=== PATIENT | female | born 1960 | race Caucasian/White ===

== ENCOUNTER → 2017-07-22 | Outpatient (CLI) | payer BC ==
--- NOTE | 2017-07-25 10:53 | MM ---
Reason for exam: screening (asymptomatic). Last mammogram was performed 4 years and 1 month ago. History: Patient is postmenopausal. Physical Findings: A clinical breast exam by your physician is recommended on an annual basis and results should be correlated with mammographic findings. MG 3D Screening Mammo W/Cad Bilateral CC and MLO view(s) were taken. Prior study comparison: July 05, 2013, CAD bilateral diagnostic mammogram. August 12, 2011, bilateral digital screening mammo w/CAD. The breast tissue is heterogeneously dense. This may lower the sensitivity of mammography. No suspicious abnormality. No significant changes when compared with prior studies. ASSESSMENT: Negative, BI-RAD 1 RECOMMENDATION: Routine screening mammogram of both breasts in 1 year.
== END | disposition home or self-care (01) ==
LOC: RADMAMWWP 13:23
PROVIDERS: ATTEND Obstetrics & Gynecology
DX: Z12.31 Encounter for screening mammogram for malignant neoplasm of breast (principal)
CPT/HCPCS: 77063; 77067

== ENCOUNTER 2017-07-27 14:34 | Inpatient (IN) | payer BC ==
[2017-07-27 15:44] LABS: Basophils % (A) 0 %; Eosinophils # (A) 0.1 k/uL (0-0.7); Eosinophils % (A) 1 %; HCT 34.7 % (34.0-46.0); HGB 12.1 gm/dL (11.4-16.0); Lymphocytes # (A) 1.2 k/uL (1.0-4.8); Lymphocytes % (A) 19 %; MCH 31.3 pg (25.0-35.0); MCHC 34.8 g/dL (31.0-37.0); Mean Platelet Volume 8.2; Monocytes # (A) 0.3 k/uL (0-1.0); Monocytes % (A) 5 %; Neutrophils # (A) 4.5 k/uL (1.3-7.7); Neutrophils % (A) 72 %; RBC 3.86 m/uL (3.80-5.40); RDW 12.8 % (11.5-15.5); WBC 6.3 k/uL (3.8-10.6)
[2017-07-27 15:52] LABS: Anion Gap 12 mmol/L; Blood Urea Nitrogen 16 mg/dL (7-17); Calcium 9.6 mg/dL (8.4-10.2); Carbon Dioxide 27 mmol/L (22-30); Chloride 108 mmol/L (98-107); Glucose 73 mg/dL (74-99); Potassium 3.8 mmol/L (3.5-5.1); Sodium 147 mmol/L (137-145)
--- NOTE | 2017-07-27 15:53 | XR ---
EXAMINATION TYPE: XR chest 2V DATE OF EXAM: 07/27/2017 COMPARISON: NONE INDICATION: Low platelets, bruising TECHNIQUE: Frontal and lateral views of the chest are obtained. FINDINGS: The heart size is normal. The pulmonary vasculature is normal. The lungs are clear. No effusions are evident. No pulmonary contusions are identified. Bimalleolar a ppears normal. IMPRESSION: 1. No acute pulmonary process.
--- NOTE | 2017-07-27 15:57 | ED ---
Recheck HPI - General Chief Complaint: Recheck/Abnormal Lab/Rx Stated Complaint: sent by for low platelet count Time Seen by Provider: 07/27/17 14:48 Source: patient Mode of arrival: ambulatory Limitations: no limitations - History of Present Illness Initial Comments: 57-year-old female with past medical history of hypertension and hyperlipidemia presenting for evaluation of petechia easy bruising. She states that she presented to an urgent care for lesions in the mouth as well as petechia across her body. They found her to be from [facility] center to the ED for further treatment and evaluation. She states recently the only change in her medical status is taking Aleve for generalized body aches however she denies any previous issues when previous he taking Aleve. There are no recent viral illnesses and she denies previously having similar symptoms. She has a past surgical history significant for hysterectomy and bunion repair as which are recent and had no bleeding competitions. There are no bleeding disorders in her family, either older family or in her children. She states that she does intermittently bruises easily she does not ever get these petechia. There is also associated mild epistaxis from the right naris. - Related Data Home Medications Medication Instructions Recorded Confirmed Atorvastatin [Lipitor] 40 mg PO HS 08/17/15 07/27/17 Lisinopril [Lisinopril] 10 mg PO DAILY 08/17/15 07/27/17 Allergies Allergy/AdvReac Type Severity Reaction Status Date / Time No Known Allergies Allergy Verified 07/27/17 14:47 Review of Systems ROS Statement: Those systems with pertinent positive or pertinent negative responses have been documented in the HPI. ROS Other: All systems not noted in ROS Statement are negative. Constitutional: Denies: fever, chills, night sweats Eyes: Denies: eye discharge, vision change ENT: Reports: epistaxis. Denies: ear pain, throat pain, congestion Respiratory: Denies: cough, dyspnea, wheezes, hemoptysis Cardiovascular: Denies: chest pain, palpitations, dyspnea on exertion, syncope Endocrine: Denies: fatigue, polydipsia, polyuria Gastrointestinal: Denies: abdominal pain, nausea, vomiting, diarrhea, constipation, hematemesis, melena, hematochezia Genitourinary: Denies: urgency, dysuria, hematuria, abnormal menses Skin: Reports: lesions, other (Bruising inside the mouth along the masticationAnd diffuse petechia across her entire body. There is also intermittent bruises across her arms.) Neurological: Denies: headache, weakness Psychiatric: Denies: anxiety, depression Hematological/Lymphatic: Reports: easy bruising (Mild). Denies: easy bleeding Past Medical History Past Medical History: Hyperlipidemia, Hypertension History of Any Multi-Drug Resistant Organisms: None Reported Past Surgical History: No Surgical Hx Reported Past Psychological History: No Psychological Hx Reported Smoking Status: Never smoker Past Alcohol Use History: None Reported Past Drug Use History: None Reported General Exam Limitations: no limitations General appearance: alert, in no apparent distress Head exam: Present: atraumatic, normocephalic Eye exam: Present: normal appearance, PERRL, EOMI. Absent: scleral icterus, conjunctival injection ENT exam: Present: mucous membranes dry, other (Multiple bruises to the bucca mucosa as well as to her lower lip) Neck exam: Present: normal inspection, tenderness Respiratory exam: Present: normal lung sounds bilaterally. Absent: respiratory distress, wheezes, rales, rhonchi, stridor Cardiovascular Exam: Present: regular rate, normal rhythm GI/Abdominal exam: Present: soft. Absent: distended, tenderness, guarding, rebound, rigid Rectal exam: Present: deferred Extremities exam: Present: normal inspection, full ROM Back exam: Present: normal inspection, full ROM Neurological exam: Present: alert, oriented X3 Psychiatric exam: Present: normal affect, normal mood, depressed Skin exam: Present: warm, dry, intact, petechiae (Diffuse), other (Bruising to the upper extremities worse on the right compared to the left) Course Vital Signs 07/27/17 07/27/17 07/27/17 14:40 17:15 18:06 Temperature 98.5 F 97.4 F L 98.7 F Pulse Rate 85 71 Pulse Rate [ 61 Pulse Oximetery ] Respiratory 18 18 16 Rate Blood Pressure 165/80 173/95 Blood Pressure 163/90 [Left Arm] O2 Sat by Pulse 98 100 98 Oximetry Medical Decision Making - Medical Decision Making 57 yo female with pmh of HTN and HLD presenting for evaluation of petechia and mouth sores started over the last couple days. Seen at urgent care, found to be thrombocytopenic, and sent to ED. On physical examination she does have diffuse petechia across all extremities and her trunk. The mouth lesions are bruising along the mastication line. Patient also has a mild epistaxis that is currently well controlled. Concern for ITP vs TTP among other bleeding disorders. Will obtain lab work and evaluate further. Discussed with Dr. Sweeney who accepted the admission with request for consult with Dr. Woodruff. He further requested to delay transfusing platelets until discussing with Dr. Woodruff (hem/onc). Admission order placed and bed request submitted. Discussed with Dr. Simmons (hem/onc) who requested the patient be started on 1 g Solu-Medrol daily and do have a peripheral smear ordered to look for schistocytes and platelet clumping as well as to order coagulation studies. She did not request for the patient to be transfused and this will continue to be held. - Lab Data Result diagrams: 07/27/17 15:34 07/27/17 15:34 Lab Results 07/27/17 07/27/17 07/27/17 Range/Units 15:34 15:34 15:42 WBC 6.3 (3.8-10.6) k/uL RBC 3.86 (3.80-5.40) m/uL Hgb 12.1 (11.4-16.0) gm/dL Hct 34.7 (34.0-46.0) % MCV 90.0 (80.0-100.0) fL MCH 31.3 (25.0-35.0) pg MCHC 34.8 (31.0-37.0) g/dL RDW 12.8 (11.5-15.5) % Plt Count 6 L* (150-450) k/uL Neutrophils % 72 % Lymphocytes % 19 % Monocytes % 5 % Eosinophils % 1 % Basophils % 0 % Neutrophils # 4.5 (1.3-7.7) k/uL Lymphocytes # 1.2 (1.0-4.8) k/uL Monocytes # 0.3 (0-1.0) k/uL Eosinophils # 0.1 (0-0.7) k/uL Basophils # 0.0 (0-0.2) k/uL Sodium 147 H (137-145) mmol/L Potassium 3.8 (3.5-5.1) mmol/L Chloride 108 H (98-107) mmol/L Carbon Dioxide 27 (22-30) mmol/L Anion Gap 12 mmol/L BUN 16 (7-17) mg/dL Creatinine 0.50 L (0.52-1.04) mg/dL Est GFR (CKD-EPI)AfAm >90 (>60 ml/min/1.73 sqM) Est GFR (CKD-EPI)NonAf >90 (>60 ml/min/1.73 sqM) Glucose 73 L (74-99) mg/dL Calcium 9.6 (8.4-10.2) mg/dL Urine Color Urine Appearance (Clear) Urine pH (5.0-8.0) Ur Specific [place] (1.001-1.035) Urine Protein (Negative) Urine Glucose (UA) (Negative) Urine Ketones (Negative) Urine Blood (Negative) Urine Nitrite (Negative) Urine Bilirubin (Negative) Urine Urobilinogen (<2.0) mg/dL Ur Leukocyte Esterase (Negative) Urine RBC (0-5) /hpf Urine WBC (0-5) /hpf Ur Squamous Epith Cells (0-4) /hpf Amorphous Sediment (None) /hpf Blood Type A Positive Blood Type Recheck No Antibody Screen NEGATIVE Spec Expiration Date 07/30/2017 - 234107/27/17 Range/Units 15:42 WBC (3.8-10.6) k/uL RBC (3.80-5.40) m/uL Hgb (11.4-16.0) gm/dL Hct (34.0-46.0) % MCV (80.0-100.0) fL MCH (25.0-35.0) pg MCHC (31.0-37.0) g/dL RDW (11.5-15.5) % Plt Count (150-450) k/uL Neutrophils % % Lymphocytes % % Monocytes % % Eosinophils % % Basophils % % Neutrophils # (1.3-7.7) k/uL Lymphocytes # (1.0-4.8) k/uL Monocytes # (0-1.0) k/uL Eosinophils # (0-0.7) k/uL Basophils # (0-0.2) k/uL Sodium (137-145) mmol/L Potassium (3.5-5.1) mmol/L Chloride (98-107) mmol/L Carbon Dioxide (22-30) mmol/L Anion Gap mmol/L BUN (7-17) mg/dL Creatinine (0.52-1.04) mg/dL Est GFR (CKD-EPI)AfAm (>60 ml/min/1.73 sqM) Est GFR (CKD-EPI)NonAf (>60 ml/min/1.73 sqM) Glucose (74-99) mg/dL Calcium (8.4-10.2) mg/dL Urine Color Light Yellow Urine Appearance Cloudy H (Clear) Urine pH 7.5 (5.0-8.0) Ur Specific [place] 1.013 (1.001-1.035) Urine Protein Negative (Negative) Urine Glucose (UA) Negative (Negative) Urine Ketones Negative (Negative) Urine Blood Moderate H (Negative) Urine Nitrite Negative (Negative) Urine Bilirubin Negative (Negative) Urine Urobilinogen <2.0 (<2.0) mg/dL Ur Leukocyte Esterase Trace H (Negative) Urine RBC 69 H (0-5) /hpf Urine WBC 6 H (0-5) /hpf Ur Squamous Epith Cells <1 (0-4) /hpf Amorphous Sediment Occasional H (None) /hpf Blood Type Blood Type Recheck Antibody Screen Spec Expiration Date Disposition Clinical Impression: Thrombocytopenia, Petechial rash, Hematuria, Epistaxis Disposition: ADMITTED IP TO THIS [facility] Referrals: Roger Mercado DO [Primary Care Provider] - 1-2 days Decision to Admit Reason: Admit from EC Decision Date: 07/27/17 Decision Time: 16:59
[2017-07-27 16:06] LABS: Amorphous Sediment,Urine Occasional /hpf; Appearance,Urine Cloudy (Clear); Bilirubin,Urine Negative (Negative); Blood,Urine Moderate (Negative); Color,Urine Light Yellow; Glucose,Urine (UA) Negative (Negative); Ketones,Urine Negative (Negative); Leukocyte Esterase,Urine Trace (Negative); Nitrite,Urine Negative (Negative); PH, Urine 7.5 (5.0-8.0); Protein,Urine Negative (Negative); RBC,Urine 69 /hpf (0-5); Specific Gravity,Urine 1.013 (1.001-1.035); Squamous Epithelial Cell,Urine <1 /hpf (0-4); Urobilinogen,Urine <2.0 mg/dL (<2.0); WBC,Urine 6 /hpf (0-5)
[2017-07-27 16:14] LABS: Platelet Count 6 k/uL (150-450)
[2017-07-27] MEDS ORDERED: OXYMETAZOLINE 0.05% NASL SPRAY 1 SPRAY BOTTLE NASAL STA (17:00)
[2017-07-27] MEDS ORDERED: ACETAMINOPHEN TAB 325 MG TAB PO PRN (17:00)
[2017-07-27] MEDS ORDERED: ONDANSETRON 4 MG/2 ML VIAL IVP PRN (17:00)
[2017-07-27] MEDS ORDERED: NALOXONE 0.4 MG/ML 1 ML VIAL IV PRN (17:00)
[2017-07-27] MEDS ORDERED: methylPREDNISolone SOD SUCCI 125 MG/2 ML VIAL IV SCH (17:15)
[2017-07-27 19:05] LABS: Partial Thromboplastin Time 21.6 sec (22.0-30.0)
--- NOTE | 2017-07-27 23:44 | P.HPIM ---
History of Present Illness H&P Date: 07/27/17 Chief Complaint: Rash Patient is a 57-year-old female with a known history of hypertension hyperlipidemia came to ER with complaints of nosebleed and mouth sores. Patient also noticed petechial rash all over the body and bruising which she notices in the morning today. She presented to urgent care facility and patient had blood workup done which showed thrombocytopenia and was referred to ER. Patient otherwise denied any recent illnesses. Patient had influenza about a year back. She states recently the only change in her medical status is taking Aleve for generalized body aches however she denies any previous issues when previous he taking Aleve. She has a past surgical history significant for hysterectomy and bunion repair as which are recent and had no bleeding competitions. There are no bleeding disorders in her family, either older family or in her children. She states that she does intermittently bruises easily she does not ever get these petechia. No fever no chills. No nausea vomiting or abdominal pain. No diarrhea. No hematemesis or melena. No altered mentation.. Creatinine 0.5 Chest x-ray showed no acute cardio process Platelet count 6000 Review of Systems Constitutional: Patient denies any fever or chills . No generalized weakness or weight loss. Abdomen: Patient denied nausea vomiting and diarrhea and abdominal pain. Cardiovascular: Patient denies any chest pain or short of breath no palpitations. Respiratory: patient denied any cough is from production. No shortness of breath Neurologic: Patient denied any numbness or tingling headache. Musculoskeletal: Patient denies any complaints of joint swelling or deformity. Skin: Petechial rash and bruising Psychiatric: Negative Endocrine: No heat or cold intolerance. No recent weight gain. Genitourinary: No dysuria or hematuria. All other 14 point ROS negative except the above Past Medical History Past Medical History: Hyperlipidemia, Hypertension Additional Past Medical History / Comment(s): murmur, arthitis in feet, "blisters in mouth", bruising rt arm (slipped bumped arm but did'nt fall ). History of Any Multi-Drug Resistant Organisms: None Reported Past Surgical History: No Surgical Hx Reported Additional Past Surgical History / Comment(s): partial hysterectomy, nehal bunionectomy Past Anesthesia/Blood Transfusion Reactions: No Reported Reaction Past Psychological History: No Psychological Hx Reported Smoking Status: Never smoker Past Alcohol Use History: None Reported Past Drug Use History: None Reported - Past Family History Mother Additional Family Medical History / Comment(s): pacemaker Father Family Medical History: Coronary Artery Disease (CAD) Additional Family Medical History / Comment(s): age 42- cardiac disease Medications and Allergies Home Medications Medication Instructions Recorded Confirmed Type Atorvastatin [Lipitor] 40 mg PO HS 08/17/15 07/27/17 History Lisinopril [Lisinopril] 10 mg PO DAILY 08/17/15 07/27/17 History Allergies Allergy/AdvReac Type Severity Reaction Status Date / Time No Known Allergies Allergy Verified 07/27/17 14:47 Physical Exam Vitals: Vital Signs Temp Pulse Pulse Resp BP BP Pulse Ox 07/27/17 18:06 98.7 F 61 16 163/90 98 07/27/17 17:15 97.4 F L 71 18 173/95 100 07/27/17 14:40 98.5 F 85 18 165/80 98 Intake and Output 07/27/17 07/27/17 07/27/17 06:59 14:59 22:59 Other: Weight 61.235 kg PHYSICAL EXAMINATION: Patient is lying in the bed comfortably, no acute distress, awake alert and oriented.. HEENT: Normocephalic. Neck is supple. Pupils reactive. Nostrils clear. Oral cavity is moist. Ears reveal no drainage. Neck reveals no JVD, carotid bruits, or thyromegaly. CHEST EXAMINATION: Trachea is central. Symmetrical expansion. Lung suaoz clear to auscultation and percussion. CARDIAC: Normal S1, S2 with no gallops. No murmurs ABDOMEN: Soft. Bowel sounds normal. No organomegaly. No abdominal bruits. Extremities: reveal no edema. No clubbing or cyanosis Neurologically awake, alert, oriented x3 with well-coordinated movements. No focal deficits noted Skin: Patient does have petechial rash mainly on the hands and bruising at the left elbow 2 x 2 cm Psychiatric: Coperative. Nonsuicidal Musculoskeletal: No joint swelling or deformity. Normal range of motion. Results CBC & Chem 7: 07/27/17 15:34 07/27/17 15:34 Labs: Abnormal Lab Results - Last 24 Hours (Table) 07/27/17 07/27/17 07/27/17 Range/Units 15:30 15:34 15:34 Plt Count 6 L* (150-450) k/uL APTT 21.6 L (22.0-30.0) sec Sodium 147 H (137-145) mmol/L Chloride 108 H (98-107) mmol/L Creatinine 0.50 L (0.52-1.04) mg/dL Glucose 73 L (74-99) mg/dL Urine Appearance (Clear) Urine Blood (Negative) Ur Leukocyte Esterase (Negative) Urine RBC (0-5) /hpf Urine WBC (0-5) /hpf Amorphous Sediment (None) /hpf 07/27/17 Range/Units 15:42 Plt Count (150-450) k/uL APTT (22.0-30.0) sec Sodium (137-145) mmol/L Chloride (98-107) mmol/L Creatinine (0.52-1.04) mg/dL Glucose (74-99) mg/dL Urine Appearance Cloudy H (Clear) Urine Blood Moderate H (Negative) Ur Leukocyte Esterase Trace H (Negative) Urine RBC 69 H (0-5) /hpf Urine WBC 6 H (0-5) /hpf Amorphous Sediment Occasional H (None) /hpf Assessment and Plan Assessment: Acute thrombocytopenia. Possible ITP Petechial rash and bruising Hypertension Hyperlipidemia Mild hypernatremia Plan: Patient was started on supplemental 1 g daily. We'll check peripheral smear for any schistocytes and platelet clumping. Oncology/hematology will be consulted and follow up closely. Further recommendations based on the clinical course. Time with Patient: Greater than 30
[2017-07-28 07:20] LABS: Anion Gap 10 mmol/L; Blood Urea Nitrogen 16 mg/dL (7-17); Calcium 9.8 mg/dL (8.4-10.2); Carbon Dioxide 26 mmol/L (22-30); Chloride 107 mmol/L (98-107); Glucose 139 mg/dL (74-99); Potassium 3.9 mmol/L (3.5-5.1); Sodium 143 mmol/L (137-145)
[2017-07-28 07:24] LABS: Basophils % (A) 0 %; Eosinophils % (A) 0 %; HGB 12.6 gm/dL (11.4-16.0); Lymphocytes # (A) 0.5 k/uL (1.0-4.8); Lymphocytes % (A) 9 %; MCH 31.4 pg (25.0-35.0); MCHC 34.8 g/dL (31.0-37.0); MCV 90.3 fL (80.0-100.0); Mean Platelet Volume 5.7; Monocytes # (A) 0.1 k/uL (0-1.0); Monocytes % (A) 1 %; Neutrophils # (A) 5.2 k/uL (1.3-7.7); Neutrophils % (A) 90 %; RBC 3.99 m/uL (3.80-5.40); RDW 12.9 % (11.5-15.5); WBC 5.8 k/uL (3.8-10.6)
[2017-07-28 07:30] LABS: Platelet Count 4 k/uL (150-450)
[2017-07-28] MEDS: LISINOPRIL 10 MG TAB PO SCH (09:14)
--- NOTE | 2017-07-28 13:54 | P.CONS ---
History of Present Illness - Reason for Consult Consult date: 07/28/17 Thrombocytopenia Requesting physician: Corby Sweeney - Chief Complaint Petechia - History of Present Illness Ms. Mcknight is a very pleasant 57 yo female with no PMH other than well controlled HTN and HLP, who presented to her PCP for increasing petechia and lesions on her tongue. CBC showed severe thrombocytopenia. She was told to go to ED, where CBC showed normal WBC and hemoglobin, although plt was 6. Coag's normal. LFT's normal. She was admitted for further management and were called for further management. Given a dose of Solumedrol 1gm per my request in the ED. She otherwise has been feeling well. Very active. Did slip in the shower a couple days ago and today noticed a large hematoma on her left hip. Otherwise, her left arm was bruised. Also couple days ago had black blister on her tongue after biting her tongue. She did have a physical a few months ago which showed plt 134, otherwise normal and no other CBC's in the system. No fevers, night sweats, weight loss, fatigue, GI/ symptoms, or other complaints. No bleeding. Postmenopausal. No smoking, alcohol, or drugs. Lives at home with her . No known family history of blood disorders or cancers. Review of Systems All systems: negative Constitutional: Reports as per HPI Past Medical History Past Medical History: Hyperlipidemia, Hypertension Additional Past Medical History / Comment(s): murmur, arthitis in feet, "blisters in mouth", bruising rt arm (slipped bumped arm but did'nt fall ). History of Any Multi-Drug Resistant Organisms: None Reported Past Surgical History: No Surgical Hx Reported Additional Past Surgical History / Comment(s): partial hysterectomy, nehal bunionectomy Past Anesthesia/Blood Transfusion Reactions: No Reported Reaction Past Psychological History: No Psychological Hx Reported Smoking Status: Never smoker Past Alcohol Use History: None Reported Past Drug Use History: None Reported - Past Family History Mother Additional Family Medical History / Comment(s): pacemaker Father Family Medical History: Coronary Artery Disease (CAD) Additional Family Medical History / Comment(s): age 42- cardiac disease Medications and Allergies Home Medications Medication Instructions Recorded Confirmed Type Atorvastatin [Lipitor] 40 mg PO HS 08/17/15 07/27/17 History Lisinopril [Lisinopril] 10 mg PO DAILY 08/17/15 07/27/17 History Allergies Allergy/AdvReac Type Severity Reaction Status Date / Time No Known Allergies Allergy Verified 07/27/17 14:47 Physical Exam Vitals: Vital Signs Temp Pulse Pulse Pulse Resp BP BP 07/28/17 08:22 17 07/28/17 07:32 97.8 F 63 17 124/84 07/27/17 23:00 98.1 F 70 16 141/79 07/27/17 22:34 16 07/27/17 18:06 98.7 F 61 16 163/90 07/27/17 17:15 97.4 F L 71 18 173/95 07/27/17 14:40 98.5 F 85 18 165/80 Pulse Ox 07/28/17 08:22 07/28/17 07:32 96 07/27/17 23:00 96 07/27/17 22:34 07/27/17 18:06 98 07/27/17 17:15 100 07/27/17 14:40 98 Intake and Output 07/27/17 07/28/17 07/28/17 22:59 06:59 14:59 Intake Total 550 Balance 550 Intake: Intake, IV Titration 100 Amount methylPREDNISolone SOD 100 SUCC 1,000 mg In Sodium Chloride 0.9% 100 ml @ 100 mls/hr IVPB Q24H [facility] Rx#:[id number] Oral 450 Other: # Voids 2 1 Weight 61.235 kg Constitutional: No acute distress. HEENT: EOMI. No scleral icterus or pallor. Mucosa moist without lesions. Neck: Neck supple. Lymph: No cervical, axillary or inguinal LAD. Lungs: CTA-B without wheezing or rhonchi. Heart: RRR without murmurs. No LE edema. Abdomen: Soft, nontender, nondistended, with positive bowel sounds. MSK: 4/4 strength in all 4 extremities. Neuro: Alert and oriented x 3. ~No obvious gross neurologic deficits. Skin: No jaundice. Diffuse petechia on arms, legs, and torso. Couple scattered purpura as well. Petechia and purpura on tongue. Large hematoma, nodular, on left hip. Psych: Appropriate affect Results CBC & Chem 7: 07/28/17 06:50 07/28/17 06:50 Labs: Abnormal Lab Results - Last 24 Hours (Table) 07/27/17 07/27/17 07/27/17 Range/Units 15:30 15:34 15:34 Plt Count 6 L* (150-450) k/uL Lymphocytes # (1.0-4.8) k/uL APTT 21.6 L (22.0-30.0) sec Sodium 147 H (137-145) mmol/L Chloride 108 H (98-107) mmol/L Creatinine 0.50 L (0.52-1.04) mg/dL Glucose 73 L (74-99) mg/dL Urine Appearance (Clear) Urine Blood (Negative) Ur Leukocyte Esterase (Negative) Urine RBC (0-5) /hpf Urine WBC (0-5) /hpf Amorphous Sediment (None) /hpf 07/27/17 07/28/17 07/28/17 Range/Units 15:42 06:50 06:50 Plt Count 4 L* (150-450) k/uL Lymphocytes # 0.5 L (1.0-4.8) k/uL APTT (22.0-30.0) sec Sodium (137-145) mmol/L Chloride (98-107) mmol/L Creatinine 0.50 L (0.52-1.04) mg/dL Glucose 139 H (74-99) mg/dL Urine Appearance Cloudy H (Clear) Urine Blood Moderate H (Negative) Ur Leukocyte Esterase Trace H (Negative) Urine RBC 69 H (0-5) /hpf Urine WBC 6 H (0-5) /hpf Amorphous Sediment Occasional H (None) /hpf Assessment and Plan Assessment: 1. 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 Left hip hematoma due to trauma couple days ago Plan: Ms. Mcknight is a very pleasant 57 yo female with history of HTN and HLP who is here for thrombocytopenia after work up for petechia. She has noticed increased bruising recently however no bleeding. CBC from 01/2017 with mild thrombocytopenia of 130, otherwise normal. CMP and coag's normal. She otherwise feels great. Started on solumedrol in ED. I feel her case is likely due to ITP. Will obtain work up to ensure no other contributing etiology, and to help identify etiology of ITP. I did reimbursement counselor her on my suspicion. She will need to be on steroids, Solumedrol 1gm daily for at least 3 days, and monitored with daily CBC. Would avoid platelet transfusions if no active bleed as she likely will not benefit from this. Advised to be extra cautious about falls/trauma for now until her platelets are somewhat improved. Will diana her hematoma as well and monitor her bruising to ensure no ongoing bleeding. Discussed with pt and her at bedside. Counseled on ITP diagnosis and management. They were agreeable to the plan. All questions were answered.
[2017-07-28] MEDS: PANTOPRAZOLE 40 MG TABLET PO SCH (17:07)
[2017-07-28] MEDS: ATORVASTATIN 40 MG TAB PO SCH (20:49)
--- NOTE | 2017-07-29 01:01 | P.PN ---
Subjective Progress Note Date: 07/28/17 Principal diagnosis: ITP Patient is a 57-year-old female with a known history of hypertension hyperlipidemia came to ER with complaints of nosebleed and mouth sores. Patient also noticed petechial rash all over the body and bruising which she notices in the morning today. She presented to urgent care facility and patient had blood workup done which showed thrombocytopenia and was referred to ER. Patient otherwise denied any recent illnesses. Patient had influenza about a year back. She states recently the only change in her medical status is taking Aleve for generalized body aches however she denies any previous issues when previous he taking Aleve. She has a past surgical history significant for hysterectomy and bunion repair as which are recent and had no bleeding competitions. There are no bleeding disorders in her family, either older family or in her children. She states that she does intermittently bruises easily she does not ever get these petechia. No fever no chills. No nausea vomiting or abdominal pain. No diarrhea. No hematemesis or melena. No altered mentation.. Creatinine 0.5 Chest x-ray showed no acute cardio process Platelet count 6000 07/28/2017 Patient denied any complaints of chest pain or shortness of breath. Patient was seen by oncology/hematology. Being continued on IV steroids. No signs of active bleeding noted. Patient does have hematoma on the left hip which is marked. Platelet count is 4000 today. Patient was given walker and fall precautions with side of the bed elevation. No fever no chills. B12, folate, iron profile, HIV, hepatitis and TSH was ordered All other review of systems negative for about Active Medications Acetaminophen (Tylenol Tab) 650 mg PO Q6HR PRN PRN Reason: Mild Pain or Fever > 100.5 Atorvastatin Calcium (Lipitor) 40 mg PO HS [facility] Last Admin: 07/28/17 20:49 Dose: 40 mg Methylprednisolone Sodium Succinate 1,000 mg/ Sodium Chloride 100 mls @ 100 mls /hr IVPB Q24H [facility] Last Admin: 07/28/17 17:07 Dose: 100 mls/hr Lisinopril (Zestril) 10 mg PO DAILY [facility] Last Admin: 07/28/17 09:14 Dose: 10 mg Naloxone HCl (Narcan) 0.2 mg IV Q2M PRN PRN Reason: Opioid Reversal Ondansetron HCl (Zofran) 4 mg IVP Q8HR PRN PRN Reason: Nausea And Vomiting Pantoprazole Sodium (Protonix) 40 mg PO AC-BRKFST [facility] Last Admin: 07/28/17 17:07 Dose: 40 mg Objective - Vital Signs Vital signs: Vital Signs Temp 98.4 F 07/28/17 14:51 Pulse 74 07/28/17 14:51 Resp 18 07/28/17 14:51 BP 136/79 07/28/17 14:51 Pulse Ox 98 07/28/17 14:51 Intake & Output 07/28/17 07/28/17 07/29/17 06:59 18:59 06:59 Intake Total 550 Balance 550 Weight 61.235 kg Intake: Intake, IV Titration 100 Amount methylPREDNISolone SOD 100 SUCC 1,000 mg In Sodium Chloride 0.9% 100 ml @ 100 mls/hr IVPB Q24H [facility] Rx#:[id number] Oral 450 Other: # Voids 1 3 - Exam PHYSICAL EXAMINATION: Patient is lying in the bed comfortably, no acute distress, awake alert and oriented.. HEENT: Normocephalic. Neck is supple. Pupils reactive. Nostrils clear. Oral cavity is moist. Ears reveal no drainage. Neck reveals no JVD, carotid bruits, or thyromegaly. CHEST EXAMINATION: Trachea is central. Symmetrical expansion. Lung suazo clear to auscultation and percussion. CARDIAC: Normal S1, S2 with no gallops. No murmurs ABDOMEN: Soft. Bowel sounds normal. No organomegaly. No abdominal bruits. Extremities: reveal no edema. No clubbing or cyanosis. Hematoma on the left hip Neurologically awake, alert, oriented x3 with well-coordinated movements. No focal deficits noted Skin: Patient does have petechial rash mainly on the hands and bruising at the left elbow 2 x 2 cm Psychiatric: Coperative. Nonsuicidal Musculoskeletal: No joint swelling or deformity. Normal range of motion. - Labs CBC & Chem 7: 07/28/17 06:50 07/28/17 06:50 Labs: Abnormal Lab Results - Last 24 Hours (Table) 07/28/17 07/28/17 Range/Units 06:50 06:50 Plt Count 4 L* (150-450) k/uL Lymphocytes # 0.5 L (1.0-4.8) k/uL Creatinine 0.50 L (0.52-1.04) mg/dL Glucose 139 H (74-99) mg/dL Assessment and Plan Assessment: Acute thrombocytopenia. Possible ITP Petechial rash and bruising Hypertension Hyperlipidemia Mild hypernatremia Left hip hematoma from recent fall Plan: Patient was started on Solu-Medrol 1 g daily. Ordered peripheral smear for any schistocytes and platelet clumping. Oncology/hematology will be consulted and follow up closely. Continue workup for etiology. Further recommendations based on the clinical course. Time with Patient: Greater than 30
[2017-07-29] MEDS: PANTOPRAZOLE 40 MG TABLET PO SCH (07:50)
[2017-07-29 08:23] LABS: Albumin 3.8 g/dL (3.5-5.0); Bilirubin, Delta 0.1 mg/dL (0.0-0.2); Bilirubin,Unconjugated 0.3 mg/dL (0.0-1.1); Total Bilirubin 0.4 mg/dL (0.2-1.3); Total Protein 6.3 g/dL (6.3-8.2)
[2017-07-29 09:22] LABS: T4, Free (Free Thyroxine) 0.87 ng/dL (0.78-2.19)
[2017-07-29] MEDS: LISINOPRIL 10 MG TAB PO SCH (09:34)
[2017-07-29 11:46] LABS: Iron Saturation 16.57 (12.00-45.00)
[2017-07-29 11:55] LABS: Folate, Serum 6.6 ng/mL
[2017-07-29 11:58] LABS: Protein, Total 6.4 g/dL (6.2-8.2)
[2017-07-29 12:18] LABS: Basophils % (A) 0 %; Eosinophils % (A) 0 %; HCT 33.9 % (34.0-46.0); HGB 12.1 gm/dL (11.4-16.0); Lymphocytes # (A) 0.9 k/uL (1.0-4.8); Lymphocytes % (A) 6 %; MCH 31.6 pg (25.0-35.0); MCHC 35.6 g/dL (31.0-37.0); MCV 88.8 fL (80.0-100.0); Mean Platelet Volume 7.5; Monocytes # (A) 0.7 k/uL (0-1.0); Monocytes % (A) 4 %; Neutrophils # (A) 14.8 k/uL (1.3-7.7); Neutrophils % (A) 89 %; RBC 3.82 m/uL (3.80-5.40); RDW 13.1 % (11.5-15.5); WBC 16.6 k/uL (3.8-10.6)
[2017-07-29 12:27] LABS: Platelet Count 4 k/uL (150-450)
--- NOTE | 2017-07-29 16:41 | P.PN ---
Subjective Progress Note Date: 07/29/17 Principal diagnosis: THrombocytopenia Kemi is seen today in follow-up. She is feeling good, no active bleeding with the exception of multiple areas of bruising, right abdominal hematoma (does not appear worsening) and petechae rash to extremities. Her platelet count remains at 4 today. Objective - Vital Signs Vital signs: Vital Signs Temp 97.6 F 07/29/17 07:15 Pulse 56 L 07/29/17 07:15 Resp 18 07/29/17 08:49 BP 117/71 07/29/17 07:15 Pulse Ox 98 07/29/17 07:15 Intake & Output 07/28/17 07/29/17 07/29/17 18:59 06:59 18:59 Intake Total 590 600 Balance 590 600 Intake: Oral 590 600 Other: # Voids 3 1 3 - Constitutional General appearance: Present: cooperative, no acute distress - EENT Eyes: Present: PERRLA, dentition normal ENT: Present: NA/AT, normal oropharynx - Neck Neck: Present: normal ROM - Respiratory Respiratory: bilateral: CTA (No increased effort) - Cardiovascular Rhythm: regular Heart sounds: normal: S1, S2 - Integumentary Integumentary Comment(s): Petachae Rash, Area of large hematoma on right abdomen. Integumentary: Present: rash - Neurologic Neurologic Comment(s): No focal defects Neurologic: Present: CNII-XII intact - Musculoskeletal Musculoskeletal: Present: gait normal, strength equal bilaterally - Psychiatric Psychiatric: Present: A&O x's 3, appropriate affect, intact judgment & insight - Labs CBC & Chem 7: 07/29/17 12:05 07/28/17 06:50 Labs: Abnormal Lab Results - Last 24 Hours (Table) 07/28/17 07/28/17 07/29/17 Range/Units 00:00 07:30 12:05 WBC 13.2 H 16.6 H (3.8-10.6) k/uL RBC 3.67 L (3.80-5.40) m/uL Hct 33.2 L 33.9 L (34.0-46.0) % Plt Count 3 L* 4 L* (150-450) k/uL Neutrophils # 12.2 H 14.8 H (1.3-7.7) k/uL Lymphocytes # 0.6 L 0.9 L (1.0-4.8) k/uL TSH 0.291 L (0.465-4.680) mIU/L Assessment and Plan (1) Epistaxis Current Visit: Yes Status: Acute Code(s): R04.0 - EPISTAXIS SNOMED Code(s) : 192115214 (2) Petechial rash Current Visit: Yes Status: Acute Code(s): R23.3 - SPONTANEOUS ECCHYMOSES SNOMED Code(s): 140709501 (3) Thrombocytopenia Current Visit: Yes Status: Acute Code(s): D69.6 - THROMBOCYTOPENIA, UNSPECIFIED SNOMED Code(s): 534376880 Plan: Assessment/Recs: 1. Thrombocytopenia, likely due to ITP - Continue Solumedrol Daily - Continue Daily CBC and await further workup results for possible differentials - If no improvements in Platelet count will likely add IVIG tomorrow - No current need for transfusion as usually ineffective in a patient with ITP, Would consider transfusion if evidence of active bleeding present. Hemoglobin remains stable - Discussed the mechanism of action and treatment plan of potential IVIG tomorrow 2. Right hip hematoma due to trauma couple days ago
[2017-07-29 16:47] LABS: HIV AB P24 Non-Reactive (Non-Reactive); HIV P24 AG Non-Reactive (Non-Reactive)
--- NOTE | 2017-07-29 17:54 | P.PN ---
Subjective Progress Note Date: 07/29/17 Principal diagnosis: Thrombocytopenia Kemi is seen today in follow-up. She is feeling good, no active bleeding with the exception of multiple areas of bruising, right abdominal hematoma (does not appear worsening) and petechae rash to extremities. Her platelet count remains at 4 today. Patient and family have multiple questions which were answered to their satisfaction. Objective - Vital Signs Vital signs: Vital Signs Temp 98.0 F 07/29/17 15:00 Pulse 64 07/29/17 15:00 Resp 16 07/29/17 15:00 BP 131/83 07/29/17 15:00 Pulse Ox 100 07/29/17 15:00 Intake & Output 07/28/17 07/29/17 07/29/17 18:59 06:59 18:59 Intake Total 590 610 Balance 590 610 Intake: IV 10 Invasive Line 1 10 Oral 590 600 Other: # Voids 3 1 3 - Exam On exam, alert and oriented x3. HEENT: Conjunctivae normal. eyes normal. NECK: No JVD. No thyroid enlargement. No LNs CARDIOVASCULAR: S1, S2 muffled. No murmur RESPIRATION: Breath sounds diminished in the bases. No rhonchi or crackles. No bronchial breathing. ABDOMEN: Soft, nontender . No guarding. no masses palpable. No ascites, No hepatosplenomegaly.Bowel sounds heard. LEGS: No edema. no swelling NERVOUS SYSTEM: Cranial N 2-12 grossly normal. Moves all 4 limbs. No focal deficits. No sensory deficit. No signs of cerebellar dysfucntion. Skin: no ulcer no rash Joints: No active swelling. No inflammation. Lymphatic system. No LN neck axilla or groin. - Labs CBC & Chem 7: 07/29/17 12:05 07/28/17 06:50 Labs: Abnormal Lab Results - Last 24 Hours (Table) 07/28/17 07/28/17 07/29/17 Range/Units 00:00 07:30 12:05 WBC 13.2 H 16.6 H (3.8-10.6) k/uL RBC 3.67 L (3.80-5.40) m/uL Hct 33.2 L 33.9 L (34.0-46.0) % Plt Count 3 L* 4 L* (150-450) k/uL Neutrophils # 12.2 H 14.8 H (1.3-7.7) k/uL Lymphocytes # 0.6 L 0.9 L (1.0-4.8) k/uL TSH 0.291 L (0.465-4.680) mIU/L Assessment and Plan Assessment: 1. Severe thrombocytopenia possibly ITP 2. Petechial rash 3. Epistaxis 4. Right hip hematoma secondary to trauma and thrombocytopenia Plan; We will continue with IV Solu-Medrol 60 mg daily; continue to monitor CBC; further recommendations after workup is complete; hematology recommending to add IVIG tomorrow if platelet count shows no improvement; no platelet transfusion as recommended unless there is evidence of active bleeding; patient' s hemoglobin remained stable Time with Patient: Greater than 30
[2017-07-29] MEDS: ATORVASTATIN 40 MG TAB PO SCH (20:35)
[2017-07-30 06:59] LABS: Basophils % (A) 0 %; Eosinophils % (A) 0 %; HCT 32.3 % (34.0-46.0); HGB 11.2 gm/dL (11.4-16.0); Lymphocytes # (A) 0.6 k/uL (1.0-4.8); Lymphocytes % (A) 6 %; MCH 31.4 pg (25.0-35.0); MCHC 34.6 g/dL (31.0-37.0); MCV 90.7 fL (80.0-100.0); Mean Platelet Volume 9.6; Monocytes # (A) 0.2 k/uL (0-1.0); Monocytes % (A) 2 %; Neutrophils # (A) 8.5 k/uL (1.3-7.7); Neutrophils % (A) 91 %; RBC 3.56 m/uL (3.80-5.40); RDW 13.3 % (11.5-15.5); WBC 9.3 k/uL (3.8-10.6)
[2017-07-30 07:00] LABS: Platelet Count 2 k/uL (150-450)
[2017-07-30 07:19] LABS: Anion Gap 9 mmol/L; Blood Urea Nitrogen 18 mg/dL (7-17); Calcium 9.6 mg/dL (8.4-10.2); Carbon Dioxide 28 mmol/L (22-30); Chloride 107 mmol/L (98-107); Glucose 124 mg/dL (74-99); Potassium 4.2 mmol/L (3.5-5.1); Sodium 144 mmol/L (137-145)
[2017-07-30] MEDS ORDERED: IMMUNE GLOBULIN (HUMAN-IGG) 1 GM/10 ML VIAL IV ONE (08:57)
[2017-07-30] MEDS: PANTOPRAZOLE 40 MG TABLET PO SCH (09:02)
[2017-07-30] MEDS: LISINOPRIL 10 MG TAB PO SCH (09:02)
[2017-07-30] MEDS ORDERED: IMMUNE GLOBULIN (HUMAN-IGG) 30 GM in EMPTY BAG 1 BAG IV ONE (10:00)
[2017-07-30 11:55] LABS: Basophils % (A) 0 %; Eosinophils % (A) 0 %; HCT 30.8 % (34.0-46.0); HGB 10.6 gm/dL (11.4-16.0); Lymphocytes % (A) 8 %; MCH 31.3 pg (25.0-35.0); MCHC 34.3 g/dL (31.0-37.0); MCV 91.4 fL (80.0-100.0); Mean Platelet Volume 9.3; Monocytes # (A) 0.7 k/uL (0-1.0); Monocytes % (A) 6 %; Neutrophils # (A) 10.9 k/uL (1.3-7.7); Neutrophils % (A) 85 %; RBC 3.37 m/uL (3.80-5.40); RDW 13.4 % (11.5-15.5); WBC 12.8 k/uL (3.8-10.6)
[2017-07-30 11:56] LABS: Platelet Count 23 k/uL (150-450)
--- NOTE | 2017-07-30 15:47 | P.PN ---
Subjective Progress Note Date: 07/30/17 Principal diagnosis: Thrombocytopenia Kemi is seen today in follow-up. She is feeling good, no active bleeding with the exception of multiple areas of bruising, right abdominal hematoma (does not appear worsening) and petechae rash to extremities. Her platelet count remains at 4 today. Patient and family have multiple questions which were answered to their satisfaction. 07/30/2017 Patient seen and examined in the room at bedside; it was is no new complaints; has been started on IVIG and has received later transfusion; inquiring about discharge planning Objective - Vital Signs Vital signs: Vital Signs Temp 98.2 F 07/30/17 11:10 Pulse 74 07/30/17 11:10 Resp 18 07/30/17 11:10 BP 135/80 07/30/17 11:10 Pulse Ox 100 07/30/17 10:40 Intake & Output 07/29/17 07/30/17 07/30/17 18:59 06:59 18:59 Intake Total 610 600 257 Balance 610 600 257 Intake: IV 10 Invasive Line 1 10 Oral 600 600 Blood Product 257 Platelet Pheresis Acda1 257 Unit [id number] Other: Voiding Method Toilet Toilet # Voids 3 1 - Exam On exam, alert and oriented x3. HEENT: Conjunctivae normal. eyes normal. NECK: No JVD. No thyroid enlargement. No LNs CARDIOVASCULAR: S1, S2 muffled. No murmur RESPIRATION: Breath sounds diminished in the bases. No rhonchi or crackles. No bronchial breathing. ABDOMEN: Soft, nontender . No guarding. no masses palpable. No ascites, No hepatosplenomegaly.Bowel sounds heard. LEGS: No edema. no swelling NERVOUS SYSTEM: Cranial N 2-12 grossly normal. Moves all 4 limbs. No focal deficits. No sensory deficit. No signs of cerebellar dysfucntion. Skin: no ulcer no rash Joints: No active swelling. No inflammation. Lymphatic system. No LN neck axilla or groin. - Labs CBC & Chem 7: 07/30/17 11:35 07/30/17 06:31 Labs: Abnormal Lab Results - Last 24 Hours (Table) 07/29/17 07/30/17 07/30/17 Range/Units 12:05 06:31 06:31 WBC 16.6 H (3.8-10.6) k/uL RBC 3.56 L (3.80-5.40) m/uL Hgb 11.2 L (11.4-16.0) gm/dL Hct 33.9 L 32.3 L (34.0-46.0) % Plt Count 4 L* 2 L* (150-450) k/uL Neutrophils # 14.8 H 8.5 H (1.3-7.7) k/uL Lymphocytes # 0.9 L 0.6 L (1.0-4.8) k/uL Retic Count (0.5-2.0) % BUN 18 H (7-17) mg/dL Glucose 124 H (74-99) mg/dL 07/30/17 Range/Units 11:35 WBC 12.8 H (3.8-10.6) k/uL RBC 3.37 L (3.80-5.40) m/uL Hgb 10.6 L (11.4-16.0) gm/dL Hct 30.8 L (34.0-46.0) % Plt Count 23 L* D (150-450) k/uL Neutrophils # 10.9 H (1.3-7.7) k/uL Lymphocytes # (1.0-4.8) k/uL Retic Count 3.0 H (0.5-2.0) % BUN (7-17) mg/dL Glucose (74-99) mg/dL Assessment and Plan Assessment: 1. Severe thrombocytopenia possibly ITP 2. Petechial rash 3. Epistaxis 4. Right hip hematoma secondary to trauma and thrombocytopenia Plan; We will continue with IV Solu-Medrol 60 mg daily; continue to monitor CBC; further recommendations after workup is complete; hematology ordered IVIG ; no platelet transfusion is given secondary to markedly low platelet count; patient' s hemoglobin remained stable Time with Patient: Greater than 30
--- NOTE | 2017-07-30 19:24 | P.PN ---
Subjective Progress Note Date: 07/30/17 Principal diagnosis: ITP Pt with continued bruising although denies any active bleeding. Plt 2 this am. Hgb also slightly lower at 11 from 12. Objective - Vital Signs Vital signs: Vital Signs Temp 98.2 F 07/30/17 11:10 Pulse 74 07/30/17 11:10 Resp 18 07/30/17 11:10 BP 135/80 07/30/17 11:10 Pulse Ox 100 07/30/17 10:40 Intake & Output 07/29/17 07/30/17 07/30/17 18:59 06:59 18:59 Intake Total 610 600 463.5 Balance 610 600 463.5 Intake: IV 10 Invasive Line 1 10 Intake, IV Titration 206.5 Amount Immune Globulin (Human- 206.5 IgG) 30 gm In Empty Bag 1 bag @ Per Protocol IV . Q0M ONE Rx#:[id number] Oral 600 600 Blood Product 257 Platelet Pheresis Acda1 257 Unit [id number] Other: Voiding Method Toilet Toilet # Voids 3 1 - Exam General: In no acute distress. HEENT: EOMI. No conjunctival pallor or scleral icterus. Mucosa moist. Neck: Neck supple. Lungs: CTA-B without wheezing or rhonchi. Heart: RRR. No LE edema. Abdomen: Soft, nontender, nondistended, with positive bowel sounds. MSK: 4/4 strength in all 4 extremities. Neuro: Alert and oriented 3. No obvious gross neurologic deficits. Skin: Diffuse petechia and right hip hematoma, unchanged. Psych: Appropriate affect. - Labs CBC & Chem 7: 07/30/17 11:35 07/30/17 06:31 Labs: Abnormal Lab Results - Last 24 Hours (Table) 07/30/17 07/30/17 07/30/17 Range/Units 06:31 06:31 11:35 WBC 12.8 H (3.8-10.6) k/uL RBC 3.56 L 3.37 L (3.80-5.40) m/uL Hgb 11.2 L 10.6 L (11.4-16.0) gm/dL Hct 32.3 L 30.8 L (34.0-46.0) % Plt Count 2 L* 23 L* D (150-450) k/uL Neutrophils # 8.5 H 10.9 H (1.3-7.7) k/uL Lymphocytes # 0.6 L (1.0-4.8) k/uL Retic Count 3.0 H (0.5-2.0) % BUN 18 H (7-17) mg/dL Glucose 124 H (74-99) mg/dL Assessment and Plan Assessment: 1. 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 Left hip hematoma due to trauma couple days ago 3. Anemia, likely due to bleeding with severe thrombocytopenia Plan: Ms. Mcknight is a very pleasant 57 yo female with history of HTN and HLP who is here for thrombocytopenia after work up for petechia. She has noticed increased bruising recently however no bleeding. CBC from 01/2017 with mild thrombocytopenia of 130, otherwise normal. CMP and coag's normal. She otherwise feels great. Started on solumedrol in ED. I feel her case is likely due to ITP. Work up including TSH, B12, folate, iron panel, FLC, and MANINDER with evidence of iron deficieny, otherwise negative. Abdominal US once platelets improve. SPEP and peripheral smear pending. Started on Solumedrol and received 4 days of 1gm daily, will switch to 60mg IV bid for tomorrow. Plt 2 this am with new down trending Hgb. Transfused 1 unit of plt with post-transfusion CBC showing increase in plt to 23. IVIG ordered due to severe thrombocytopenia and delayed response to steroids. Will reassess status in am and decide if another dose of IVIG is needed. If continues to have persistent severe thrombocytopenia over the next couple days, will consider Rituxan therapy, although will need a BMB prior to starting this to rule out underlying BM process (such as lymphoma, as rituxan would partially treat this and obscure results if BMB needed down the line). Will also plan on obtaining CT CAP to assess for organomegaly and LAD, although no LAD palpable on exam. Otherwise, continue to monitor with daily CBC and will rule out ongoing hemolysis as well (ie Fabien's syndrome). Will continue to limit platelet transfusion unless necessary for bleeding. Continue to monitor hematoma and petechia, and start oral daily iron supplementation for mild iron deficiency. Discussed with pt and her at bedside. They were agreeable to the plan. All questions were answered.
[2017-07-30] MEDS: ATORVASTATIN 40 MG TAB PO SCH (20:26)
[2017-07-31 07:06] LABS: Basophils % (A) 0 %; Eosinophils % (A) 0 %; HCT 29.3 % (34.0-46.0); HGB 10.2 gm/dL (11.4-16.0); Lymphocytes # (A) 0.5 k/uL (1.0-4.8); Lymphocytes % (A) 6 %; MCH 31.7 pg (25.0-35.0); MCHC 34.9 g/dL (31.0-37.0); MCV 90.8 fL (80.0-100.0); Mean Platelet Volume 9.5; Monocytes # (A) 0.3 k/uL (0-1.0); Monocytes % (A) 4 %; Neutrophils # (A) 7.2 k/uL (1.3-7.7); Neutrophils % (A) 89 %; RBC 3.23 m/uL (3.80-5.40); RDW 13.3 % (11.5-15.5); WBC 8.1 k/uL (3.8-10.6)
[2017-07-31 07:17] LABS: Platelet Count 5 k/uL (150-450)
[2017-07-31 07:20] LABS: Anion Gap 11 mmol/L; Blood Urea Nitrogen 18 mg/dL (7-17); Calcium 9.2 mg/dL (8.4-10.2); Carbon Dioxide 26 mmol/L (22-30); Chloride 107 mmol/L (98-107); Glucose 139 mg/dL (74-99); Potassium 4.2 mmol/L (3.5-5.1); Sodium 144 mmol/L (137-145)
[2017-07-31] MEDS: PANTOPRAZOLE 40 MG TABLET PO SCH (08:07)
[2017-07-31] MEDS: LISINOPRIL 10 MG TAB PO SCH (08:07)
[2017-07-31] MEDS: methylPREDNISolone SOD SUCCI 125 MG/2 ML VIAL IV SCH ×2 (10:39→20:19)
[2017-07-31] MEDS ORDERED: RX INFO: IV CONTRAST WAS GIVEN 1 EACH MISC MISCELLANE PRN (10:57)
[2017-07-31] MEDS ORDERED: IMMUNE GLOBULIN (HUMAN-IGG) 1 GM/10 ML VIAL IV ONE (10:57)
--- NOTE | 2017-07-31 11:42 | P.PN ---
Subjective Progress Note Date: 07/31/17 Principal diagnosis: ITP Anemia, likely from bleeding Pt with continued bruising although denies any active bleeding. Plt 5 this am from 23 after plt transfusion yesterday. Hgb stable in 10's. FOBT positive. Objective - Vital Signs Vital signs: Vital Signs Temp 97.9 F 07/31/17 07:00 Pulse 57 L 07/31/17 07:00 Resp 16 07/31/17 07:00 BP 129/54 07/31/17 07:00 Pulse Ox 97 07/31/17 07:00 Intake & Output 07/30/17 07/31/17 07/31/17 18:59 06:59 18:59 Intake Total 463.5 350 Balance 463.5 350 Intake: Intake, IV Titration 206.5 Amount Immune Globulin (Human- 206.5 IgG) 30 gm In Empty Bag 1 bag @ Per Protocol IV . Q0M ONE Rx#:[id number] Oral 350 Blood Product 257 Platelet Pheresis Acda1 257 Unit [id number] Other: Voiding Method Toilet Toilet # Voids 3 2 # Bowel Movements 1 - Exam General: In no acute distress. HEENT: EOMI. No conjunctival pallor or scleral icterus. Mucosa moist. Purpura on tongue improved. Neck: Neck supple. Lungs: CTA-B without wheezing or rhonchi. Heart: RRR. No LE edema. Abdomen: Soft, nontender, nondistended, with positive bowel sounds. MSK: 4/4 strength in all 4 extremities. Neuro: Alert and oriented 3. No obvious gross neurologic deficits. Skin: Diffuse petechia and right hip hematoma, unchanged. Psych: Appropriate affect. - Labs CBC & Chem 7: 07/31/17 06:45 07/31/17 06:45 Labs: Abnormal Lab Results - Last 24 Hours (Table) 07/30/17 07/30/17 07/31/17 Range/Units 07:55 11:35 06:45 WBC 12.8 H (3.8-10.6) k/uL RBC 3.37 L 3.23 L (3.80-5.40) m/uL Hgb 10.6 L 10.2 L (11.4-16.0) gm/dL Hct 30.8 L 29.3 L (34.0-46.0) % Plt Count 23 L* D 5 L* D (150-450) k/uL Neutrophils # 10.9 H (1.3-7.7) k/uL Lymphocytes # 0.5 L (1.0-4.8) k/uL Retic Count 3.0 H (0.5-2.0) % BUN (7-17) mg/dL Creatinine (0.52-1.04) mg/dL Glucose (74-99) mg/dL Stool Occult Blood Positive H (Negative) 07/31/17 Range/Units 06:45 WBC (3.8-10.6) k/uL RBC (3.80-5.40) m/uL Hgb (11.4-16.0) gm/dL Hct (34.0-46.0) % Plt Count (150-450) k/uL Neutrophils # (1.3-7.7) k/uL Lymphocytes # (1.0-4.8) k/uL Retic Count (0.5-2.0) % BUN 18 H (7-17) mg/dL Creatinine 0.50 L (0.52-1.04) mg/dL Glucose 139 H (74-99) mg/dL Stool Occult Blood (Negative) Assessment and Plan Assessment: 1. 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 Left hip hematoma due to trauma couple days ago 3. Anemia, likely due to bleeding with severe thrombocytopenia Plan: Ms. Mcknight is a very pleasant 57 yo female with history of HTN and HLP who is here for thrombocytopenia after work up for petechia. She has noticed increased bruising recently however no bleeding. CBC from 01/2017 with mild thrombocytopenia of 130, otherwise normal. CMP and coag's normal. She otherwise feels great. Started on solumedrol in ED. I feel her case is likely due to ITP. Work up including TSH, B12, folate, iron panel, FLC, and MANINDER with evidence of iron deficieny, otherwise negative. Will obtain CT neck/CAP to assess for lymphoma. SPEP and peripheral smear pending. Started on Solumedrol and received 4 days of 1gm daily, switched to 60mg IV bid starting today (). Plt 2 on 07/30/17, requiring 1 unit plt, with some response to 23 post transfusion. Repeat this am 5. FOBT positive, although Hgb stable in s this am vs yesterday. S/p 1 dose of IVIG on 07/30/17, will repeat another dose today. If continues to have persistent severe thrombocytopenia over the next couple days, will consider Rituxan therapy, although will need a BMB prior to starting this to rule out underlying BM process (such as lymphoma, as rituxan would partially treat this and obscure results if BMB needed down the line). Will plan on BMB tomorrow or the next day depending on improvement of plt. Due to positive FOBT, will monitor CBC q8h, and transfuse plt if downtrending. FOBT could be positive due to swallowed blood from prior purpura in oral mucosa. Hemolysis work up negative. Will continue to limit platelet transfusion unless necessary for bleeding. Continue to monitor hematoma and petechia, and continue oral daily iron supplementation for mild iron deficiency. Discussed with pt and her at bedside. They were agreeable to the plan. All questions were answered.
[2017-07-31] MEDS: IOPAMIDOL-300 CONTRAST 30 ML VIAL (ORAL USE) PO PRN ×2 (11:58→12:56)
[2017-07-31] MEDS ORDERED: IMMUNE GLOBULIN (HUMAN-IGG) 30 GM in EMPTY BAG 1 BAG IV ONE (12:00)
[2017-07-31 12:23] LABS: Basophils % (A) 0 %; Eosinophils % (A) 0 %; HCT 32.6 % (34.0-46.0); HGB 11.2 gm/dL (11.4-16.0); Lymphocytes # (A) 0.8 k/uL (1.0-4.8); Lymphocytes % (A) 7 %; MCH 31.7 pg (25.0-35.0); MCHC 34.5 g/dL (31.0-37.0); MCV 91.9 fL (80.0-100.0); Mean Platelet Volume 13.8; Monocytes # (A) 0.8 k/uL (0-1.0); Monocytes % (A) 7 %; Neutrophils # (A) 10.2 k/uL (1.3-7.7); Neutrophils % (A) 85 %; RBC 3.55 m/uL (3.80-5.40); RDW 13.4 % (11.5-15.5)
[2017-07-31 12:57] LABS: Reticulocyte % 3.1 % (0.5-2.0)
[2017-07-31 13:08] LABS: Platelet Count 7 k/uL (150-450)
--- NOTE | 2017-07-31 13:53 | CT ---
EXAMINATION TYPE: CT soft tissue neck w con DATE OF EXAM: 07/31/2017 1:46 PM COMPARISON: NONE HISTORY: Low white cell count, lymphoma CT DLP: 251.30 mGycm Automated exposure control for dose reduction was used. CONTRAST: CT scan of the neck is performed following with IV Contrast, patient injected with 100-total mL of Is ovue 300. Axial images are obtained, coronal and sagittal reformatted images are reviewed. FINDINGS: Visualized portions of the lungs are clear. Vertebral body height and alignment are maintained. Atlantoaxial relationships are normal. There is disc space loss and hypertrophic spondylosis present at C5-6 and C6-7. There is mild uncover tebral joint disease also present at these levels. There is facet arthropathy on the left at C4-5 no definite protrusion is seen. Visualized intracranial structures are unremarkable. Visualized portions of the paranasal sinuses and mastoids are clear. The major salivary glands are unremarkable. The parapharyngeal, oropharyngeal and laryngeal soft tissues are normal. The thyroid gland enhances homogeneously. There is some shotty submental and deep cervical lymph nodes. No pathologically enlarged lymph nodes are seen. IMPRESSION: 1. NO SIGNIFICANT ADENOPATHY. 2. DEGENERATIVE CHANGES WITHIN THE SPINE.
--- NOTE | 2017-07-31 13:58 | CT ---
EXAMINATION TYPE: CT ChestAbdPelvis w con DATE OF EXAM: 07/31/2017 COMPARISON: NONE HISTORY: Low white cell count, lymphoma CT DLP: 813.20 mGycm Automated exposure control for dose reduction was used. TECHNIQUE: Helical acquisition through the abdomen and pelvis was obtained without oral contrast but following the intravenous administration of 100-total mL of Isovue 300. The data was formatted in th e axial, coronal and sagittal projections. FINDINGS: The lungs are clear. There is no significant axillary, internal mammary, mediastinal or hilar lymph nodes. There is no ple ural or pericardial fluid. The heart is upper limits of normal in size. Within the abdomen, the liver is normal in size. There is a 12.7 cm low attenuating lesion in the pos terior segment of the right lobe of the liver. No additional hepatic lesions are seen. The spleen and gallbladder are normal. Both adrenal glands are normal. Both kidneys demonstrate function and appear morphologically normal. The pancreas is unremarkable. There is no significant retroperitoneal, iliac or inguinal adenopathy. The bladder is unremarkable. The uterus and ovaries are not identified. There is no significant diverticular change and there is no radiographic evidence of diverticulitis. The appendix is not visualized with certainty. There is a moderate stool load. Small bowel loops are normal in caliber. There is no free fluid and no free air. There is facet arthropathy in the lower lumbar spine. There is minimal hypertrophic spondylosis. No b sage destructive lesion is seen. IMPRESSION: 1. NO DEFINITE PATHOLOGIC ADENOPATHY. 2. PROBABLE CYST WITHIN THE POSTERIOR SEGMENT OF THE RIGHT LOBE OF THE LIVER. THIS COULD BE CONFIRMED WITH ULTRASOUND. 3. MODERATE STOOL LOAD. 4. MILD DEGENERATIVE CHANGES WITHIN THE SPINE.
[2017-07-31 16:21] LABS: Hepatitis A Antibody IgM Non-Reactive (Non-Reactive); Hepatitis B Core IgM Non-Reactive (Non-Reactive)
--- NOTE | 2017-07-31 17:12 | P.PN ---
Subjective Progress Note Date: 07/31/17 Principal diagnosis: Thrombocytopenia Kemi is seen today in follow-up. She is feeling good, no active bleeding with the exception of multiple areas of bruising, right abdominal hematoma (does not appear worsening) and petechae rash to extremities. Her platelet count remains at 4 today. Patient and family have multiple questions which were answered to their satisfaction. 07/30/2017 Patient seen and examined in the room at bedside; it was is no new complaints; has been started on IVIG and has received later transfusion; inquiring about discharge planning 07/31/2017 Patient continues to produce without any active bleeding; patient was given transfusion of platelets with improvement in platelet count up to 23; platelet count is 5 this morning; patient hemoglobin is stable at 10; patient does have positive fecal occult blood possibly secondary to bleeding from low platelets; possible GI involvement of hemoglobin continues to drop. Patient is given another dose of IVIG this morning; Objective - Vital Signs Vital signs: Vital Signs Temp 98.4 F 07/31/17 15:00 Pulse 58 L 07/31/17 15:00 Resp 16 07/31/17 15:00 BP 160/79 07/31/17 15:00 Pulse Ox 99 07/31/17 15:00 Intake & Output 07/30/17 07/31/17 07/31/17 18:59 06:59 18:59 Intake Total 463.5 350 175 Output Total 3 Balance 463.5 350 172 Intake: Intake, IV Titration 206.5 175 Amount Immune Globulin (Human- 206.5 IgG) 30 gm In Empty Bag 1 bag @ Per Protocol IV . Q0M ONE Rx#:[id number] Immune Globulin (Human- 175 IgG) 30 gm In Empty Bag 1 bag @ Per Protocol IV . Q0M ONE Rx#:[id number] Oral 350 Blood Product 257 Platelet Pheresis Acda1 257 Unit [id number] Output: Urine 3 Other: Voiding Method Toilet Toilet Toilet # Voids 3 2 # Bowel Movements 1 - Exam On exam, alert and oriented x3. HEENT: Conjunctivae normal. eyes normal. NECK: No JVD. No thyroid enlargement. No LNs CARDIOVASCULAR: S1, S2 muffled. No murmur RESPIRATION: Breath sounds diminished in the bases. No rhonchi or crackles. No bronchial breathing. ABDOMEN: Soft, nontender . No guarding. no masses palpable. No ascites, No hepatosplenomegaly.Bowel sounds heard. LEGS: No edema. no swelling NERVOUS SYSTEM: Cranial N 2-12 grossly normal. Moves all 4 limbs. No focal deficits. No sensory deficit. No signs of cerebellar dysfucntion. Skin: no ulcer no rash Joints: No active swelling. No inflammation. Lymphatic system. No LN neck axilla or groin. - Labs CBC & Chem 7: 07/31/17 12:07 07/31/17 06:45 Labs: Abnormal Lab Results - Last 24 Hours (Table) 07/30/17 07/31/17 07/31/17 Range/Units 07:55 06:45 06:45 WBC (3.8-10.6) k/uL RBC 3.23 L (3.80-5.40) m/uL Hgb 10.2 L (11.4-16.0) gm/dL Hct 29.3 L (34.0-46.0) % Plt Count 5 L* D (150-450) k/uL Neutrophils # (1.3-7.7) k/uL Lymphocytes # 0.5 L (1.0-4.8) k/uL Retic Count (0.5-2.0) % BUN 18 H (7-17) mg/dL Creatinine 0.50 L (0.52-1.04) mg/dL Glucose 139 H (74-99) mg/dL Stool Occult Blood Positive H (Negative) 07/31/17 07/31/17 Range/Units 06:45 12:07 WBC 12.0 H (3.8-10.6) k/uL RBC 3.55 L (3.80-5.40) m/uL Hgb 11.2 L (11.4-16.0) gm/dL Hct 32.6 L (34.0-46.0) % Plt Count 7 L* (150-450) k/uL Neutrophils # 10.2 H (1.3-7.7) k/uL Lymphocytes # 0.8 L (1.0-4.8) k/uL Retic Count 3.1 H (0.5-2.0) % BUN (7-17) mg/dL Creatinine (0.52-1.04) mg/dL Glucose (74-99) mg/dL Stool Occult Blood (Negative) Assessment and Plan Assessment: 1. Severe thrombocytopenia possibly ITP 2. Petechial rash 3. Epistaxis 4. Right hip hematoma secondary to trauma and thrombocytopenia Plan; We will continue with IV Solu-Medrol 60 mg daily; continue to monitor CBC; hematology ordered another dose of IVIG ; no platelet transfusion is given today secondary to markedly low platelet count; patient's hemoglobin remained stable; will consult GI for further evaluation and testing if hemoglobin continues to drop; she does have a positive fecal occult blood which could be secondary to swallowed blood due to bleeding secondary to low platelet count; hematology is planning to start patient on Rituxan therapy if platelets remain markedly low; Time with Patient: Greater than 30
[2017-07-31] MEDS: ATORVASTATIN 40 MG TAB PO SCH (20:19)
[2017-07-31 20:43] LABS: Basophils % (A) 0 %; Eosinophils % (A) 0 %; HCT 31.5 % (34.0-46.0); HGB 10.9 gm/dL (11.4-16.0); Lymphocytes # (A) 0.5 k/uL (1.0-4.8); Lymphocytes % (A) 5 %; MCH 31.8 pg (25.0-35.0); MCHC 34.6 g/dL (31.0-37.0); MCV 91.8 fL (80.0-100.0); Mean Platelet Volume 14.8; Monocytes # (A) 0.4 k/uL (0-1.0); Monocytes % (A) 4 %; Neutrophils # (A) 8.9 k/uL (1.3-7.7); Neutrophils % (A) 90 %; RBC 3.43 m/uL (3.80-5.40); RDW 13.3 % (11.5-15.5); WBC 9.9 k/uL (3.8-10.6)
[2017-07-31 21:16] LABS: Platelet Count 9 k/uL (150-450)
[2017-08-01 04:43] LABS: Basophils % (A) 0 %; Eosinophils % (A) 0 %; HCT 27.5 % (34.0-46.0); HGB 9.8 gm/dL (11.4-16.0); Lymphocytes # (A) 0.6 k/uL (1.0-4.8); Lymphocytes % (A) 8 %; MCH 32.2 pg (25.0-35.0); MCHC 35.6 g/dL (31.0-37.0); MCV 90.6 fL (80.0-100.0); Mean Platelet Volume 9.6; Monocytes # (A) 0.3 k/uL (0-1.0); Monocytes % (A) 5 %; Neutrophils # (A) 6.2 k/uL (1.3-7.7); Neutrophils % (A) 86 %; RBC 3.03 m/uL (3.80-5.40); RDW 13.3 % (11.5-15.5); WBC 7.3 k/uL (3.8-10.6)
[2017-08-01 04:46] LABS: Platelet Count 7 k/uL (150-450)
[2017-08-01] MEDS: PANTOPRAZOLE 40 MG TABLET PO SCH (08:35)
[2017-08-01] MEDS: methylPREDNISolone SOD SUCCI 125 MG/2 ML VIAL IV SCH ×3 (08:36→23:36)
[2017-08-01] MEDS: LISINOPRIL 10 MG TAB PO SCH (08:36)
--- NOTE | 2017-08-01 12:25 | P.PN ---
Subjective Progress Note Date: 08/01/17 Thrombocytopenia Kemi is seen today in follow-up. She is feeling good, no active bleeding with the exception of multiple areas of bruising, right abdominal hematoma (does not appear worsening) and petechae rash to extremities. Her platelet count remains at 4 today. Patient and family have multiple questions which were answered to their satisfaction. 07/30/2017 Patient seen and examined in the room at bedside; it was is no new complaints; has been started on IVIG and has received later transfusion; inquiring about discharge planning 07/31/2017 Patient continues to produce without any active bleeding; patient was given transfusion of platelets with improvement in platelet count up to 23; platelet count is 5 this morning; patient hemoglobin is stable at 10; patient does have positive fecal occult blood possibly secondary to bleeding from low platelets; possible GI involvement of hemoglobin continues to drop. Patient is given another dose of IVIG this morning; Above notes per covering provider, Dr. Smiley 08/01/2017 Patient seen and examined at the bedside this morning with Dr. Mercado. Platelet count this morning is 7, down from 9 yesterday. Patient denies any active bleeding. Patient has multiple bruises throughout body that have been marked with a skin marker. Bruising has not increased in size. Stool for occult blood is positive, which is thought to be secondary from swallowed blood as patients tongue was bleeding. Patient has received IVIG x 2 and one transfusion of platelets thus far. Hepatitis panel is non-reactive. CMV IgM antibody is non- reactive. CMV IgG antibody is reactive. Awaiting further recommendations from hematology. Objective - Vital Signs Vital signs: Vital Signs Temp 98.2 F 08/01/17 07:00 Pulse 60 08/01/17 07:00 Resp 18 08/01/17 07:00 BP 163/99 08/01/17 07:00 Pulse Ox 97 08/01/17 07:00 Intake & Output 07/31/17 08/01/17 08/01/17 18:59 06:59 18:59 Intake Total 175 Output Total 3 Balance 172 Intake: Intake, IV Titration 175 Amount Immune Globulin (Human- 175 IgG) 30 gm In Empty Bag 1 bag @ Per Protocol IV . Q0M ONE Rx#:[id number] Output: Urine 3 Other: Voiding Method Toilet Toilet # Voids 1 # Bowel Movements 1 - Exam GENERAL: This is a 57-year-old female in no apparent distress at the time of examination. Pleasant and cooperative. HEENT: Purpura on tongue significantly improved. Head is atraumatic, normocephalic. Pupils are equal, round, and reactive to light. Sclerae anicteric. Conjunctivae are clear. Mucus membranes of the mouth are moist. Neck is supple. RESPIRATORY: Clear to ausculation. No wheezes, rales, or rhonchi. No use of accessory muscles. Patient maintaining oxygen saturation greater than 92%. No chest wall tenderness is noted on palpation or with deep breathing. CARDIOVASCULAR: Regular rate and rhythm. S1 and S2 noted. No JVD noted. No S3 or S4 noted. GASTROINTESTINAL: No distention noted. Abdomen soft and round. Normal active bowel sounds auscultated x 4 quadrants. No pain or tenderness noted upon palpation. INTEGUMENTARY: Diffuse petechiae, which is improving, and right hip hematoma, unchanged. Multiple areas of ecchymosis which have not increased in size. No cyanosis. No jaundice. No cellulitis noted. EXTREMITIES: 2+ peripheral pulses. No evidence of peripheral edema. No calf tenderness noted. NEUROLOGIC: Cranial nerves II-XII intact. PSYCHIATRIC: Awake, alert, and oriented X 3. Appropriate affect. Intact judgement and insight. - Labs CBC & Chem 7: 08/01/17 03:46 07/31/17 06:45 Labs: Abnormal Lab Results - Last 24 Hours (Table) 07/31/17 07/31/17 07/31/17 Range/Units 06:45 06:45 12:07 WBC 12.0 H (3.8-10.6) k/uL RBC 3.55 L (3.80-5.40) m/uL Hgb 11.2 L (11.4-16.0) gm/dL Hct 32.6 L (34.0-46.0) % Plt Count 7 L* (150-450) k/uL Neutrophils # 10.2 H (1.3-7.7) k/uL Lymphocytes # 0.8 L (1.0-4.8) k/uL Retic Count 3.1 H (0.5-2.0) % CMV IgG Ab Reactive H (Non-Reactive) 07/31/17 08/01/17 Range/Units 20:02 03:46 WBC (3.8-10.6) k/uL RBC 3.43 L 3.03 L (3.80-5.40) m/uL Hgb 10.9 L 9.8 L (11.4-16.0) gm/dL Hct 31.5 L 27.5 L (34.0-46.0) % Plt Count 9 L* 7 L* (150-450) k/uL Neutrophils # 8.9 H (1.3-7.7) k/uL Lymphocytes # 0.5 L 0.6 L (1.0-4.8) k/uL Retic Count (0.5-2.0) % CMV IgG Ab (Non-Reactive) Assessment and Plan Plan: ASSESSMENT: Thrombocytopenia, likely due to ITP, s/p transfusion of IVIG x 2 and platelets x 1 Left hip hematoma, secondary to trauma a few days ago Anemia, likely due to bleeding with severe thrombocytopenia Essential hypertension Hyperlipidemia Epistaxis, resolved PLAN: Hematology on consult. Appreciate recommendations and input Patient to possibly start on Rituxan. Await further input from hematology GI on consult. Await further recommendations and input Continue IV steroids: 60 mg IV every 12 hours Defer steroid sliding scale protocol which requires multiple fingersticks and subcutaneous insulin administration secondary to low platelet count Home meds as appropriate Monitor labs GI prophylaxis: Protonix 40 mg PO Daily DVT prophylaxis: Not applicable due to severe thrombocytopenia Monitor vital signs and address as appropriate Discharge planning: Patient to return home when stable Further recommendations pending patient's course Nurse practitioner note has been reviewed by physician. Signing provider agrees with the documented findings, assessment, and plan of care.
[2017-08-01 12:46] LABS: Gamma Globulin 0.76 g/dL (0.70-1.50)
[2017-08-01 12:50] LABS: Basophils % (A) 0 %; Eosinophils % (A) 0 %; HCT 31.6 % (34.0-46.0); HGB 10.9 gm/dL (11.4-16.0); Lymphocytes # (A) 0.6 k/uL (1.0-4.8); Lymphocytes % (A) 7 %; MCH 31.7 pg (25.0-35.0); MCHC 34.4 g/dL (31.0-37.0); Mean Platelet Volume 15.5; Monocytes # (A) 0.4 k/uL (0-1.0); Monocytes % (A) 5 %; Neutrophils # (A) 7.5 k/uL (1.3-7.7); Neutrophils % (A) 87 %; RBC 3.43 m/uL (3.80-5.40); RDW 13.2 % (11.5-15.5); WBC 8.6 k/uL (3.8-10.6)
[2017-08-01 12:57] LABS: Platelet Count 15 k/uL (150-450)
--- NOTE | 2017-08-01 13:32 | P.PN ---
Subjective Progress Note Date: 08/01/17 Principal diagnosis: THrombocytopenia Kemi is seen today in follow-up. She received a unit of platelets over the weekend and two doses of IVIG. SHe had an initial improvement in platelet count , although today 7. She does not appear to be responding to steroids and IVIG quickly. Long discussion with Kemi today. SHe denies any new acute bleeding. Her brusings have not appeared to worsen. Her hemoglobin has mildly decreased. Objective - Vital Signs Vital signs: Vital Signs Temp 98.2 F 08/01/17 07:00 Pulse 60 08/01/17 07:00 Resp 18 08/01/17 07:00 BP 163/99 08/01/17 07:00 Pulse Ox 97 08/01/17 07:00 Intake & Output 07/31/17 08/01/17 08/01/17 18:59 06:59 18:59 Intake Total 175 Output Total 3 Balance 172 Intake: Intake, IV Titration 175 Amount Immune Globulin (Human- 175 IgG) 30 gm In Empty Bag 1 bag @ Per Protocol IV . Q0M ONE Rx#:[id number] Output: Urine 3 Other: Voiding Method Toilet Toilet # Voids 1 # Bowel Movements 1 - Constitutional General appearance: Present: average body habitus, cooperative, no acute distress - EENT Eyes: Present: EOMI, PERRLA, dentition normal ENT: Present: normal oropharynx - Neck Neck: Present: normal ROM - Respiratory Respiratory: bilateral: CTA (No increased respiratory effort) - Cardiovascular Rhythm: regular - Integumentary Integumentary Comment(s): Right hip with large eccymosis area and 5-6inch area of hardened hematoma, not worsened since last exam. Petechaie rash still noted to bilateral arms and legs Integumentary: Present: rash - Neurologic Neurologic Comment(s): No focal defects Neurologic: Present: CNII-XII intact - Musculoskeletal Musculoskeletal: Present: gait normal, strength equal bilaterally - Psychiatric Psychiatric: Present: A&O x's 3, appropriate affect, intact judgment & insight - Labs CBC & Chem 7: 08/01/17 12:15 07/31/17 06:45 Labs: Abnormal Lab Results - Last 24 Hours (Table) 07/31/17 07/31/17 07/31/17 Range/Units 06:45 06:45 12:07 WBC 12.0 H (3.8-10.6) k/uL RBC 3.55 L (3.80-5.40) m/uL Hgb 11.2 L (11.4-16.0) gm/dL Hct 32.6 L (34.0-46.0) % Plt Count 7 L* (150-450) k/uL Neutrophils # 10.2 H (1.3-7.7) k/uL Lymphocytes # 0.8 L (1.0-4.8) k/uL Retic Count 3.1 H (0.5-2.0) % CMV IgG Ab Reactive H (Non-Reactive) 07/31/17 08/01/17 Range/Units 20:02 03:46 WBC (3.8-10.6) k/uL RBC 3.43 L 3.03 L (3.80-5.40) m/uL Hgb 10.9 L 9.8 L (11.4-16.0) gm/dL Hct 31.5 L 27.5 L (34.0-46.0) % Plt Count 9 L* 7 L* (150-450) k/uL Neutrophils # 8.9 H (1.3-7.7) k/uL Lymphocytes # 0.5 L 0.6 L (1.0-4.8) k/uL Retic Count (0.5-2.0) % CMV IgG Ab (Non-Reactive) - Imaging and Cardiology CT scan - abdomen: report reviewed CT scan - chest: report reviewed CT scan - pelvis: report reviewed Assessment and Plan (1) Epistaxis Current Visit: Yes Status: Acute Code(s): R04.0 - EPISTAXIS SNOMED Code(s) : 413153043 (2) Petechial rash Current Visit: Yes Status: Acute Code(s): R23.3 - SPONTANEOUS ECCHYMOSES SNOMED Code(s): 275328657 (3) Thrombocytopenia Current Visit: Yes Status: Acute Code(s): D69.6 - THROMBOCYTOPENIA, UNSPECIFIED SNOMED Code(s): 094117049 Plan: Assessment/Recs: 1. Thrombocytopenia, likely due to ITP - Continue Solumedrol Daily - Continue Daily CBC and await further workup results for possible differentials - Will increase steroids to 60mg IV q8 hours - With the presence of hematoma and petechaie rash will transfuse plt today , although usually ineffective for patients with underlying ITP - Hemoglobin remains stable, continue to monitor CBC - Discussed in detail the next diagnostic steps as Bone marrow biopsy, likely tomorrow, she would like with anesthesia. - If no response likely will require Rituxan infusions weekly x4-6 treatments, these were discussed with Kemi as well. 2. Right hip hematoma due to trauma couple days ago Physician Attest: I have completed the full history and physical of this patient, discussed and agree with dictation above from Hina Melchor NP, documented as a scribe. Time with Patient: Greater than 30
[2017-08-01] MEDS: ATORVASTATIN 40 MG TAB PO SCH (20:29)
[2017-08-01 21:01] LABS: Basophils % (A) 0 %; Eosinophils % (A) 0 %; HCT 30.9 % (34.0-46.0); HGB 10.5 gm/dL (11.4-16.0); Lymphocytes # (A) 0.6 k/uL (1.0-4.8); Lymphocytes % (A) 8 %; MCH 31.1 pg (25.0-35.0); MCV 91.5 fL (80.0-100.0); Mean Platelet Volume 14.1; Monocytes # (A) 0.4 k/uL (0-1.0); Monocytes % (A) 5 %; Neutrophils # (A) 6.5 k/uL (1.3-7.7); Neutrophils % (A) 86 %; RBC 3.38 m/uL (3.80-5.40); RDW 13.4 % (11.5-15.5); WBC 7.6 k/uL (3.8-10.6)
[2017-08-01 21:13] LABS: Platelet Count 16 k/uL (150-450)
[2017-08-02 06:34] LABS: Basophils % (A) 0 %; Eosinophils % (A) 0 %; HCT 30.5 % (34.0-46.0); HGB 10.2 gm/dL (11.4-16.0); Lymphocytes # (A) 0.5 k/uL (1.0-4.8); Lymphocytes % (A) 7 %; MCH 30.8 pg (25.0-35.0); MCHC 33.6 g/dL (31.0-37.0); MCV 91.7 fL (80.0-100.0); Mean Platelet Volume 13.8; Monocytes # (A) 0.3 k/uL (0-1.0); Monocytes % (A) 4 %; Neutrophils # (A) 6.5 k/uL (1.3-7.7); Neutrophils % (A) 89 %; RBC 3.32 m/uL (3.80-5.40); RDW 13.4 % (11.5-15.5); WBC 7.3 k/uL (3.8-10.6)
[2017-08-02 06:42] LABS: Platelet Count 14 k/uL (150-450)
[2017-08-02 07:12] LABS: Large Platelets Present
[2017-08-02 07:13] LABS: Anisocytosis (M) Present; Polychromasia Present
[2017-08-02] MEDS: PANTOPRAZOLE 40 MG TABLET PO SCH (08:23)
[2017-08-02] MEDS: LISINOPRIL 10 MG TAB PO SCH (08:23)
--- NOTE | 2017-08-02 08:56 | P.PN ---
Subjective Progress Note Date: 08/02/17 Thrombocytopenia Kemi is seen today in follow-up. She is feeling good, no active bleeding with the exception of multiple areas of bruising, right abdominal hematoma (does not appear worsening) and petechae rash to extremities. Her platelet count remains at 4 today. Patient and family have multiple questions which were answered to their satisfaction. 07/30/2017 Patient seen and examined in the room at bedside; it was is no new complaints; has been started on IVIG and has received later transfusion; inquiring about discharge planning 07/31/2017 Patient continues to produce without any active bleeding; patient was given transfusion of platelets with improvement in platelet count up to 23; platelet count is 5 this morning; patient hemoglobin is stable at 10; patient does have positive fecal occult blood possibly secondary to bleeding from low platelets; possible GI involvement of hemoglobin continues to drop. Patient is given another dose of IVIG this morning; Above notes per covering provider, Dr. Smiley 08/01/2017 Patient seen and examined at the bedside this morning with Dr. Mercado. Platelet count this morning is 7, down from 9 yesterday. Patient denies any active bleeding. Patient has multiple bruises throughout body that have been marked with a skin marker. Bruising has not increased in size. Stool for occult blood is positive, which is thought to be secondary from swallowed blood as patients tongue was bleeding. Patient has received IVIG x 2 and one transfusion of platelets thus far. Hepatitis panel is non-reactive. CMV IgM antibody is non- reactive. CMV IgG antibody is reactive. Awaiting further recommendations from hematology. 08/02/2017 Patient seen and examined at the bedside on rounds with Dr. Mercado. Patient had platelet transfusion yesterday. Platelet count is 14 today, down from 16 yesterday evening. Hemoglobin is 10.2. Possible bone marrow biospy today per hematology. Patient denies shortness of breath. Denies chest pain or pressure. Denies pain or discomfort. Vital signs remain stable. Objective - Vital Signs Vital signs: Vital Signs Temp 98.1 F 08/02/17 07:10 Pulse 98 08/02/17 07:54 Resp 16 08/02/17 07:54 BP 156/94 08/02/17 07:10 Pulse Ox 98 08/02/17 07:10 Intake & Output 08/01/17 08/02/17 08/02/17 18:59 06:59 18:59 Intake Total 699 Balance 699 Weight 61.235 kg 61.235 kg Intake: Oral 500 Blood Product 199 Platelet Pheresis Acda2 199 Unit [id number] Other: Voiding Method Toilet Toilet Toilet # Voids 2 - Exam GENERAL: This is a 57-year-old female in no apparent distress at the time of examination. Pleasant and cooperative. HEENT: Purpura on tongue significantly improved. Head is atraumatic, normocephalic. Pupils are equal, round, and reactive to light. Sclerae anicteric. Conjunctivae are clear. Mucus membranes of the mouth are moist. Neck is supple. RESPIRATORY: Clear to ausculation. No wheezes, rales, or rhonchi. No use of accessory muscles. Patient maintaining oxygen saturation greater than 92%. No chest wall tenderness is noted on palpation or with deep breathing. CARDIOVASCULAR: Regular rate and rhythm. S1 and S2 noted. No JVD noted. No S3 or S4 noted. GASTROINTESTINAL: No distention noted. Abdomen soft and round. Normal active bowel sounds auscultated x 4 quadrants. No pain or tenderness noted upon palpation. INTEGUMENTARY: Diffuse petechiae, which is improving, and right hip hematoma, unchanged. Multiple areas of ecchymosis which have not increased in size. No cyanosis. No jaundice. No cellulitis noted. EXTREMITIES: 2+ peripheral pulses. No evidence of peripheral edema. No calf tenderness noted. NEUROLOGIC: Cranial nerves II-XII intact. PSYCHIATRIC: Awake, alert, and oriented X 3. Appropriate affect. Intact judgement and insight. - Labs CBC & Chem 7: 08/02/17 04:30 07/31/17 06:45 Labs: Abnormal Lab Results - Last 24 Hours (Table) 08/01/17 08/01/17 08/02/17 Range/Units 12:15 20:41 04:30 RBC 3.43 L 3.38 L 3.32 L (3.80-5.40) m/uL Hgb 10.9 L 10.5 L 10.2 L (11.4-16.0) gm/dL Hct 31.6 L 30.9 L 30.5 L (34.0-46.0) % Plt Count 15 L* D 16 L* 14 L* (150-450) k/uL Lymphocytes # 0.6 L 0.6 L 0.5 L (1.0-4.8) k/uL Assessment and Plan Plan: ASSESSMENT: Thrombocytopenia, likely due to ITP, s/p transfusion of IVIG x 2 and platelets x 2 Left hip hematoma, secondary to trauma a few days ago Acute blood loss anemia secondary to severe thrombocytopenia Essential hypertension Hyperlipidemia Epistaxis, resolved PLAN: Hematology on consult. Appreciate recommendations and input Possible bone marrow aspiration today Patient to possibly start on Rituxan. Await further input from hematology Continue IV steroids: 60 mg IV every 12 hours Defer steroid sliding scale protocol which requires multiple fingersticks and subcutaneous insulin administration secondary to low platelet count Home meds as appropriate Monitor labs GI prophylaxis: Protonix 40 mg PO Daily DVT prophylaxis: Not applicable due to severe thrombocytopenia Monitor vital signs and address as appropriate Discharge planning: Patient to return home when stable Further recommendations pending patient's course Nurse practitioner note has been reviewed by physician. Signing provider agrees with the documented findings, assessment, and plan of care.
[2017-08-02] MEDS: methylPREDNISolone SOD SUCCI 125 MG/2 ML VIAL IV SCH ×3 (09:44→23:32)
[2017-08-02] MEDS ORDERED: fentaNYL (PF) 50 MCG/ML 2 ML AMP ONE (12:24)
[2017-08-02] MEDS ORDERED: GLYCOPYRROLATE 0.2 MG/ML 2 ML VIAL ONE (12:24)
[2017-08-02] MEDS ORDERED: MIDAZOLAM 2 MG/2 ML VIAL ONE (12:24)
[2017-08-02] MEDS ORDERED: LIDOCAINE 1% INJ 10MG/ML (20 ML MDV) ONE (12:24)
[2017-08-02] MEDS ORDERED: PROPOFOL 10 MG/ML 20 ML VIAL IV ONE (12:24)
[2017-08-02] MEDS ORDERED: LACTATED RINGERS 1,000 ML IV ONE (12:25)
--- NOTE | 2017-08-02 13:20 | P.PCN ---
Date of Procedure: 08/02/17 Preoperative Diagnosis: Thrombocytopenia Postoperative Diagnosis: Same Procedure(s) Performed: Bone marrow aspiration and biopsy Anesthesia: MAC Surgeon: Trent Poole Ent Nurse #1: Stated None Ent Nurse #2: Stated None Estimated Blood Loss (ml): 2 Pathology: other Condition: stable Disposition: floor Indications for Procedure: Thrombocytopenia, steroid refractory Operative Findings: Adequate samples Description of Procedure: The procedure was explained in detail to the patient. Informed consent was obtained on the floor. She was brought to the outpatient endoscopy suite and placed in the left lateral decubitus position. The area over both posterior iliac crest was cleaned and prepped with chlorhexidine and sterile draping. IV sedation was then initiated. Local anesthesia was administered with Xylocaine to the right posterior hilar crest. A Jamshidi needle was then inserted and bone marrow aspirate and biopsy obtained. On withdrawal of the needle, the patient required somewhat prolonged pressure to obtain hemostasis. This was able to be achieved. Blood loss was still quite minimal. Recovery from sedation was satisfactory. She appeared to have tolerated the procedure well without any obvious immediate complications. A pressure dressing was placed. She, and nursing, were instructed about maintaining adequate pressure on the puncture site. She will be closely monitored on the floor for any persistent bleeding.
--- NOTE | 2017-08-02 13:32 | P.PN ---
Subjective Progress Note Date: 08/02/17 Principal diagnosis: THrombocytopenia Kemi is seen today in follow-up. She received a unit of platelets over the weekend and two doses of IVIG. Steroids were increased to every 8 hours, her platelets today 14. We are planning on Bone Marrow biopsy today. Objective - Vital Signs Vital signs: Vital Signs Temp 98.1 F 08/02/17 12:24 Pulse 98 08/02/17 12:24 Resp 16 08/02/17 12:24 BP 156/94 08/02/17 12:24 Pulse Ox 98 08/02/17 12:24 Intake & Output 08/01/17 08/02/17 08/02/17 18:59 06:59 18:59 Intake Total 699 250 Balance 699 250 Weight 61.235 kg 61.235 kg Intake: IV 250 Oral 500 0 Blood Product 199 Platelet Pheresis Acda2 199 Unit [id number] Other: Voiding Method Toilet Toilet Toilet # Voids 2 2 - Constitutional General appearance: Present: cooperative, no acute distress, thin - EENT Eyes: Present: EOMI, PERRLA, dentition normal, normal appearance ENT: Present: NA/AT, normal oropharynx - Neck Neck: Present: normal ROM - Respiratory Respiratory: bilateral: CTA (No increased Effort) - Cardiovascular Rhythm: regular Heart sounds: normal: S1, S2 - Gastrointestinal General gastrointestinal: Present: normal bowel sounds, soft - Integumentary Integumentary Comment(s): Ecchymosis and right hip hematoma. Integumentary: Present: pale, rash - Neurologic Neurologic Comment(s): No focal defects Neurologic: Present: CNII-XII intact - Musculoskeletal Musculoskeletal: Present: gait normal - Psychiatric Psychiatric: Present: A&O x's 3, appropriate affect, intact judgment & insight - Labs CBC & Chem 7: 08/02/17 04:30 07/31/17 06:45 Labs: Abnormal Lab Results - Last 24 Hours (Table) 08/01/17 08/02/17 Range/Units 20:41 04:30 RBC 3.38 L 3.32 L (3.80-5.40) m/uL Hgb 10.5 L 10.2 L (11.4-16.0) gm/dL Hct 30.9 L 30.5 L (34.0-46.0) % Plt Count 16 L* 14 L* (150-450) k/uL Lymphocytes # 0.6 L 0.5 L (1.0-4.8) k/uL - Imaging and Cardiology CT scan - abdomen: report reviewed CT scan - chest: report reviewed CT scan - pelvis: report reviewed Assessment and Plan (1) Epistaxis Current Visit: Yes Status: Acute Code(s): R04.0 - EPISTAXIS SNOMED Code(s) : 535942323 (2) Petechial rash Current Visit: Yes Status: Acute Code(s): R23.3 - SPONTANEOUS ECCHYMOSES SNOMED Code(s): 946403206 (3) Thrombocytopenia Current Visit: Yes Status: Acute Code(s): D69.6 - THROMBOCYTOPENIA, UNSPECIFIED SNOMED Code(s): 838461646 Plan: Assessment/Recs: 1. Thrombocytopenia, likely due to ITP - Continue Solumedrol Daily - Continue Daily CBC and await further workup results for possible differentials - Continue steroids at 60mg IV q8 hours with PPI - With the presence of hematoma and petechaie rash will transfuse plt today , although usually ineffective for patients with underlying ITP - Hemoglobin remains stable, continue to monitor CBC - Discussed in detail the next diagnostic steps as Bone marrow biopsy for toda, she would like with anesthesia. - If no response likely will require Rituxan infusions weekly x4-6 treatments, these were discussed with Kemi as well. 2. Right hip hematoma due to trauma couple days ago Physician Attest: I have completed the full history and physical of this patient, discussed and agree with dictation above from Hina Melchor NP, documented as a scribe.
[2017-08-02] MEDS: ATORVASTATIN 40 MG TAB PO SCH (20:17)
[2017-08-03 07:44] VITALS: BP 147/92; PULSE 57; RESP 16; TEMP 98.7
[2017-08-03 07:50] LABS: Herpes simplex I and/or II IgM 0.34 INDEX (<=0.90); Herpes simplex IgG II Ab 1.44 (< or = 0.90)
[2017-08-03 08:15] LABS: Basophils % (A) 0 %; Eosinophils % (A) 0 %; HCT 32.3 % (34.0-46.0); HGB 11.5 gm/dL (11.4-16.0); Lymphocytes # (A) 0.8 k/uL (1.0-4.8); Lymphocytes % (A) 8 %; MCH 31.8 pg (25.0-35.0); MCHC 35.5 g/dL (31.0-37.0); MCV 89.4 fL (80.0-100.0); Mean Platelet Volume 11.7; Monocytes # (A) 0.5 k/uL (0-1.0); Monocytes % (A) 5 %; Neutrophils # (A) 8.6 k/uL (1.3-7.7); Neutrophils % (A) 86 %; RBC 3.61 m/uL (3.80-5.40); RDW 13.6 % (11.5-15.5)
[2017-08-03 08:17] LABS: Platelet Count 19 k/uL (150-450)
[2017-08-03] MEDS: LISINOPRIL 10 MG TAB PO SCH (08:17)
[2017-08-03] MEDS: PANTOPRAZOLE 40 MG TABLET PO SCH (08:17)
--- NOTE | 2017-08-03 08:58 | P.PN ---
Subjective Progress Note Date: 08/03/17 Thrombocytopenia Kemi is seen today in follow-up. She is feeling good, no active bleeding with the exception of multiple areas of bruising, right abdominal hematoma (does not appear worsening) and petechae rash to extremities. Her platelet count remains at 4 today. Patient and family have multiple questions which were answered to their satisfaction. 07/30/2017 Patient seen and examined in the room at bedside; it was is no new complaints; has been started on IVIG and has received later transfusion; inquiring about discharge planning 07/31/2017 Patient continues to produce without any active bleeding; patient was given transfusion of platelets with improvement in platelet count up to 23; platelet count is 5 this morning; patient hemoglobin is stable at 10; patient does have positive fecal occult blood possibly secondary to bleeding from low platelets; possible GI involvement of hemoglobin continues to drop. Patient is given another dose of IVIG this morning; Above notes per covering provider, Dr. Smiley 08/01/2017 Patient seen and examined at the bedside this morning with Dr. Mercado. Platelet count this morning is 7, down from 9 yesterday. Patient denies any active bleeding. Patient has multiple bruises throughout body that have been marked with a skin marker. Bruising has not increased in size. Stool for occult blood is positive, which is thought to be secondary from swallowed blood as patients tongue was bleeding. Patient has received IVIG x 2 and one transfusion of platelets thus far. Hepatitis panel is non-reactive. CMV IgM antibody is non- reactive. CMV IgG antibody is reactive. Awaiting further recommendations from hematology. 08/02/2017 Patient seen and examined at the bedside on rounds with Dr. Mercado. Patient had platelet transfusion yesterday. Platelet count is 14 today, down from 16 yesterday evening. Hemoglobin is 10.2. Possible bone marrow biospy today per hematology. Patient denies shortness of breath. Denies chest pain or pressure. Denies pain or discomfort. Vital signs remain stable. 08/03/2017 Patient seen and examined at the bedside by Dr. Mercado. Patient is awake and alert. Patient underwent bone marrow aspiration yesterday by Dr. Poole. Platelet count is 19 this morning, up from 14 yesterday. Vital signs remain stable. Objective - Vital Signs Vital signs: Vital Signs Temp 98.7 F 08/03/17 07:15 Pulse 57 L 08/03/17 07:15 Resp 16 08/03/17 07:15 BP 147/92 08/03/17 07:15 Pulse Ox 96 08/03/17 07:15 Intake & Output 08/02/17 08/03/17 08/03/17 18:59 06:59 18:59 Intake Total 250 1420 Output Total 3 Balance 247 1420 Weight 61.235 kg Intake: IV 250 Oral 0 1420 Output: Urine 3 Other: Voiding Method Toilet Toilet # Voids 2 1 - Exam GENERAL: This is a 57-year-old female in no apparent distress at the time of examination. Pleasant and cooperative. HEENT: Purpura on tongue significantly improved. Head is atraumatic, normocephalic. Pupils are equal, round, and reactive to light. Sclerae anicteric. Conjunctivae are clear. Mucus membranes of the mouth are moist. Neck is supple. RESPIRATORY: Clear to ausculation. No wheezes, rales, or rhonchi. No use of accessory muscles. Patient maintaining oxygen saturation greater than 92%. No chest wall tenderness is noted on palpation or with deep breathing. CARDIOVASCULAR: Regular rate and rhythm. S1 and S2 noted. No JVD noted. No S3 or S4 noted. GASTROINTESTINAL: No distention noted. Abdomen soft and round. Normal active bowel sounds auscultated x 4 quadrants. No pain or tenderness noted upon palpation. INTEGUMENTARY: Diffuse petechiae, which is improving, and right hip hematoma, unchanged. Multiple areas of ecchymosis which have not increased in size. No cyanosis. No jaundice. No cellulitis noted. EXTREMITIES: 2+ peripheral pulses. No evidence of peripheral edema. No calf tenderness noted. NEUROLOGIC: Cranial nerves II-XII intact. PSYCHIATRIC: Awake, alert, and oriented X 3. Appropriate affect. Intact judgement and insight. - Labs CBC & Chem 7: 08/03/17 07:50 07/31/17 06:45 Labs: Abnormal Lab Results - Last 24 Hours (Table) 07/31/17 08/03/17 Range/Units 06:45 07:50 RBC 3.61 L (3.80-5.40) m/uL Hct 32.3 L (34.0-46.0) % Plt Count 19 L* (150-450) k/uL Neutrophils # 8.6 H (1.3-7.7) k/uL Lymphocytes # 0.8 L (1.0-4.8) k/uL HSV I IgG Ab 42.00 H (< or = 0.90) HSV II IgG 1.44 H (< or = 0.90) Assessment and Plan Plan: ASSESSMENT: Thrombocytopenia, likely due to ITP, s/p transfusion of IVIG x 2 and platelets x 2 Left hip hematoma, secondary to trauma a few days ago Acute blood loss anemia secondary to severe thrombocytopenia Essential hypertension Hyperlipidemia Epistaxis, resolved PLAN: Hematology on consult. Appreciate recommendations and input Patient to possibly start on Rituxan. Await further input from hematology Continue IV steroids: 60 mg IV every 8 hours Defer steroid sliding scale protocol which requires multiple fingersticks and subcutaneous insulin administration secondary to low platelet count Home meds as appropriate Monitor labs GI prophylaxis: Protonix 40 mg PO Daily DVT prophylaxis: Not applicable due to severe thrombocytopenia Monitor vital signs and address as appropriate Discharge planning: Patient to return home when stable Further recommendations pending patient's course Nurse practitioner note has been reviewed by physician. Signing provider agrees with the documented findings, assessment, and plan of care.
[2017-08-03] MEDS: methylPREDNISolone SOD SUCCI 125 MG/2 ML VIAL IV SCH ×2 (09:15→15:30)
--- NOTE | 2017-08-03 11:27 | P.PN ---
Subjective Progress Note Date: 08/03/17 Principal diagnosis: THrombocytopenia Kemi is seen today in follow-up. Her Platelets are remaining above 10 for the last 24-48 hours. She is status post Bone Marrow Biopsy, tolerated well. . Objective - Vital Signs Vital signs: Vital Signs Temp 98.7 F 08/03/17 07:15 Pulse 57 L 08/03/17 10:04 Resp 16 08/03/17 10:04 BP 147/92 08/03/17 07:15 Pulse Ox 96 08/03/17 07:15 Intake & Output 08/02/17 08/03/17 08/03/17 18:59 06:59 18:59 Intake Total 250 1420 Output Total 3 Balance 247 1420 Weight 61.235 kg Intake: IV 250 Oral 0 1420 Output: Urine 3 Other: Voiding Method Toilet Toilet Toilet # Voids 2 1 - Constitutional General appearance: Present: cooperative, no acute distress, thin - EENT Eyes: Present: EOMI, dentition normal, normal appearance ENT: Present: NA/AT, normal oropharynx - Neck Details: Supple, Trachea Midline Neck: Present: normal ROM - Respiratory Respiratory: bilateral: CTA (No increased Respiratory Effort) - Cardiovascular Rhythm: regular Heart sounds: normal: S1, S2 - Gastrointestinal General gastrointestinal: Present: soft - Integumentary Integumentary Comment(s): Ecchymosis, right hip hematoma with bruising and petechaei rash on bilateral upper and lower extremities, all appear to be improving or same, none worsened. Integumentary: Present: pale - Musculoskeletal Musculoskeletal: Present: gait normal - Psychiatric Psychiatric: Present: A&O x's 3, appropriate affect, intact judgment & insight - Labs CBC & Chem 7: 08/03/17 07:50 07/31/17 06:45 Labs: Abnormal Lab Results - Last 24 Hours (Table) 07/31/17 08/03/17 Range/Units 06:45 07:50 RBC 3.61 L (3.80-5.40) m/uL Hct 32.3 L (34.0-46.0) % Plt Count 19 L* (150-450) k/uL Neutrophils # 8.6 H (1.3-7.7) k/uL Lymphocytes # 0.8 L (1.0-4.8) k/uL HSV I IgG Ab 42.00 H (< or = 0.90) HSV II IgG 1.44 H (< or = 0.90) Assessment and Plan (1) Epistaxis Current Visit: Yes Status: Acute Code(s): R04.0 - EPISTAXIS SNOMED Code(s) : 869647334 (2) Petechial rash Current Visit: Yes Status: Acute Code(s): R23.3 - SPONTANEOUS ECCHYMOSES SNOMED Code(s): 704776189 (3) Thrombocytopenia Current Visit: Yes Status: Acute Code(s): D69.6 - THROMBOCYTOPENIA, UNSPECIFIED SNOMED Code(s): 889010858 Plan: Assessment/Recs: 1. Thrombocytopenia, likely due to ITP - Continue Solumedrol Daily - Continue Daily CBC and await further workup results for possible differentials - Continue steroids at 60mg IV q8 hours with PPI - With the presence of hematoma and petechaie rash will transfuse plt today , although usually ineffective for patients with underlying ITP - Hemoglobin remains stable, continue to monitor CBC - Discussed in detail the next diagnostic steps as Bone marrow biopsy for rjei, she would like with anesthesia. - If no response likely will require Rituxan infusions weekly x4-6 treatments, these were discussed with Kemi as well. 2. Right hip hematoma due to trauma couple days ago 3. DISPO Plan: - Kemi is stable from a Hematology Standpoint to go home as the risk for bleeding with platlet count greater than 10 in a patient with ITP are lessoned secondary to the immaturity of the platlets formed and there effectiveness. Bleeding precautions and safety are still important to disclose and discuss. I have reviewed this in detail with Kemi today. - She will be discharged initially on Prednisone 60mg po daily for approx 10 days and tapered down according to her platlet count once switched to po therapy. I have added this to the discharge summary, please provide script for patient at discharge. - I have prescribe PPI omeprazole as well for patient to take at discharge with continuing the high dose steroids for thrombocytopenia - A follow-up appointment has been made at the [facility] on the second floor on Tuesday morning 08/05/17 at 0830am and at this time we will check her platelet count and review the findings of the bone marrow biopsy if they have resulted by then. We will monitor her platelet count closely and adjust out patient medication accordingly. She will initially have platelet check 2-3 x per week with weekly [employer] JELLY or DR visits until improvement appears consistent. Physician Attest: I have completed the full history and physical of this patient, discussed and agree with dictation above from Hina Melchor NP, documented as a scribe.
[2017-08-03 15:08] VITALS: BMI 24.7
--- NOTE | 2017-08-04 12:42 | P.DS ---
Providers Date of admission: 07/27/17 17:00 Expected date of discharge: 08/03/17 Attending physician: Roger Mercado Consults: 07/27/17 17:01 Consult Physician Routine Consulting Provider: Arden Woodruff Consult Reason/Comments: Thrombocytopenia Do you want consulting provider notified?: Yes Primary care physician: Roger Mercado [facility] Course: 57 year old female who presented to the emergency room after she was evaluated at urgent care. The patient presented to a local urgent care for complaints of lesions in her mouth and petechia on her body. The patient was sent to the ER for further evaluation. The patients platelet count was 6 on admission. Hematology was consulted. The lesions on her tongue were bleeding initally but they did stop. The patient had a large hematoma to her right hip after falling in the shower a few days prior. Stool for occult blood is positive , which is thought to be secondary from swallowed blood as patients tongue was bleeding. She did have multiple bruises throughout her body that were marked with a skin marker. These areas did not increase in size during hospitalization. The patient received IVIG x 2 and platelets x 2 during hospitalization. She received IV steroids per hematology. She underwent computed tomography scan of the chest abdomen and pelvis which revealed likely cyst in the posterior segment of the right lobe of the liver, moderate stool, and mild degenerative changes within the spine. CT of the neck was completed revealing degenerative changes within the spine with no significant adenopathy. The patient underwent a bone marrow biopsy on 08/02/2017. The patient was deemed stable for discharge by Dr. Mercado. She was also cleared for discharge by hematology. The patient has a follow up appointment on 08/05/2017 with the [facility] to have her platelet count rechecked and obtain results of bone marrow aspiration. Prescriptions were sent to the patients preferred pharmacy for omeprazole and prednisone 60mg x 10 days per hematology. Discharge diagnosis: Thrombocytopenia, likely due to ITP, s/p transfusion of IVIG x 2 and platelets x 2 Left hip hematoma, secondary to trauma a few days ago as patient fell in the shower Acute blood loss anemia secondary to severe thrombocytopenia Essential hypertension Hyperlipidemia Epistaxis, resolved Nurse practitioner note has been reviewed by physician. Signing provider agrees with the documented findings, assessment, and plan of care. Plan - Discharge Summary Discharge Rx Participant: Yes New Discharge Prescriptions: New predniSONE See Taper PO DAILY #60 tab Omeprazole [PriLOSEC] 20 mg PO AC-BID #60 cap Continue Atorvastatin [Lipitor] 40 mg PO HS Lisinopril 10 mg PO DAILY Discharge Medication List Atorvastatin [Lipitor] 40 mg PO HS 08/17/15 [History] Lisinopril 10 mg PO DAILY 08/17/15 [History] Omeprazole [PriLOSEC] 20 mg PO AC-BID #60 cap 08/03/17 [Rx] predniSONE See Taper PO DAILY #60 tab 08/03/17 [Rx] Follow up Appointment(s)/Referral(s): Roger Mercado DO [Primary Care Provider] - 1-2 days ( office is closed for the day.please have patient call and schedule own appt.) Hina Melchor, JOSE D [Nurse Practitioner] - 08/05/17 8:30 am (Former[facility], Second Floor) Patient Instructions/Handouts: Prednisone (By mouth), Omeprazole (By mouth), Nosebleed (GEN), Hematuria (GEN), Thrombocytopenia (DC), Bone Marrow Biopsy (DC) Activity/Diet/Wound Care/Special Instructions: pt would like Med RX at time of d/c. Discharge Disposition: HOME SELF-CARE
== END 2017-08-03 19:03 | disposition home or self-care (01) | DRG 813 ==
LOC: EC 14:34 → 5ONC 17:00
PROVIDERS: ADMIT Family Medicine; ATTEND Family Medicine
PROC: 30233R1 Transfusion of Nonautologous Platelets into Peripheral Vein, Percutaneous Approach (ICD-10-PCS; 2017-07-30)
PROC: 30233S1 Transfusion of Nonautologous Globulin into Peripheral Vein, Percutaneous Approach (ICD-10-PCS; 2017-07-30)
PROC: 07DR3ZX Extraction of Iliac Bone Marrow, Percutaneous Approach, Diagnostic (ICD-10-PCS; principal; 2017-08-02 07:30)
DX: D69.3 Immune thrombocytopenic purpura (principal); E87.0 Hyperosmolality and hypernatremia; K76.89 Other specified diseases of liver; D62 Acute posthemorrhagic anemia; K13.79 Other lesions of oral mucosa; S30.1XXA Contusion of abdominal wall, initial encounter; E78.5 Hyperlipidemia, unspecified; S70.01XA Contusion of right hip, initial encounter; I10 Essential (primary) hypertension; M19.072 Primary osteoarthritis, left ankle and foot; M19.071 Primary osteoarthritis, right ankle and foot; R04.0 Epistaxis; D69.59 Other secondary thrombocytopenia; S70.02XA Contusion of left hip, initial encounter; W18.2XXA Fall in (into) shower or empty bathtub, initial encounter; Z90.710 Acquired absence of both cervix and uterus; Y93.E1 Activity, personal bathing and showering; Z82.49 Family history of ischemic heart disease and other diseases of the circulatory system; Z79.1 Long term (current) use of non-steroidal anti-inflammatories (NSAID); Z79.899 Other long term (current) drug therapy
CPT/HCPCS: 36415; 70491; 71046; 71260; 74177; 80048; 80074; 80076; 81001; 82272; 82607; 82728; 82746; 83010; 83540; 83550; 83615; 83883; 84165; 84439; 84443; 85025; 85045; 85384; 85610; 85730; 86038; 86334; 86644; 86645; 86694; 86695; 86696; 86850; 86880; 86900; 86901; 87338; 87390; 99284

== ENCOUNTER 2017-08-31 13:31 | Inpatient (IN) | payer BC ==
[2017-08-31] MEDS ORDERED: ALPRAZolam 0.25 MG TAB PO PRN (14:55)
[2017-08-31] MEDS ORDERED: ACETAMINOPHEN TAB 325 MG TAB PO PRN (14:58)
[2017-08-31] MEDS ORDERED: ONDANSETRON 4 MG/2 ML VIAL IVP PRN (14:58)
[2017-08-31 16:49] VITALS: BMI 25.9
[2017-08-31] MEDS: predniSONE 20 MG TAB PO SCH (19:46)
[2017-08-31] MEDS: SODIUM CHLORIDE 0.9% 1,000 ML IV SCH (20:47)
[2017-08-31] MEDS ORDERED: ATORVASTATIN 40 MG TAB PO SCH (21:00)
[2017-09-01 07:18] LABS: Basophils % (A) 0 %; Eosinophils % (A) 0 %; HCT 27.5 % (34.0-46.0); HGB 8.9 gm/dL (11.4-16.0); Hypochromasia Slight; Lymphocytes # (A) 0.7 k/uL (1.0-4.8); Lymphocytes % (A) 12 %; MCH 30.2 pg (25.0-35.0); MCHC 32.4 g/dL (31.0-37.0); MCV 93.2 fL (80.0-100.0); Mean Platelet Volume 9.3; Monocytes # (A) 0.3 k/uL (0-1.0); Monocytes % (A) 6 %; Neutrophils # (A) 4.4 k/uL (1.3-7.7); Neutrophils % (A) 81 %; Poikilocytosis Slight; RBC 2.95 m/uL (3.80-5.40); RDW 14.6 % (11.5-15.5); WBC 5.5 k/uL (3.8-10.6)
[2017-09-01 07:25] LABS: ALT 75 U/L (9-52); AST 40 U/L (14-36); Albumin 3.4 g/dL (3.5-5.0); Alkaline Phosphatase 52 U/L (38-126); Anion Gap 10 mmol/L; Blood Urea Nitrogen 12 mg/dL (7-17); Calcium 9.1 mg/dL (8.4-10.2); Carbon Dioxide 28 mmol/L (22-30); Chloride 106 mmol/L (98-107); Glucose 85 mg/dL (74-99); Potassium 3.9 mmol/L (3.5-5.1); Sodium 144 mmol/L (137-145); Total Bilirubin 0.3 mg/dL (0.2-1.3); Total Protein 6.1 g/dL (6.3-8.2)
[2017-09-01] MEDS ORDERED: PANTOPRAZOLE 40 MG TABLET PO SCH ×2 (07:30)
[2017-09-01 07:39] LABS: Platelet Count 42 k/uL (150-450)
[2017-09-01 08:13] VITALS: RESP 18
[2017-09-01] MEDS: predniSONE 20 MG TAB PO SCH (08:53)
[2017-09-01] MEDS ORDERED: LISINOPRIL 10 MG TAB PO SCH (09:00)
[2017-09-01] MEDS ORDERED: predniSONE 20 MG TAB PO SCH (09:00)
[2017-09-01] MEDS ORDERED: SODIUM FERRIC GLUCONAT-SUCROSE 125 MG in SODIUM CHLORIDE 0.9% 100 ML IVPB SCH (09:00)
[2017-09-01] MEDS: SODIUM CHLORIDE 0.9% 1,000 ML IV SCH (11:42)
--- NOTE | 2017-09-01 12:40 | P.HPIM ---
History of Present Illness H&P Date: 09/01/17 Chief Complaint: low platelets This document serves as H&P and discharge summary 57-year-old female who was recently hospitalized for bleeding gums and petechia. She was diagnosed with ITP. The patient has been following up with Dr. Poole outpatient. She states she saw Dr. Poole on Tuesday and received a unit of platelets. She states Tuesday morning she noticed some bleeding in her mouth and called Dr. Poole's office. She has multiple bruises throughout her body but she reports they have not increased in size. Her platelets were found to be 3 and she was directly admitted to the hospital for platelet transfusion. The patient received 2 doses of platelets (10 units total). Repeat platelet count is 42. She remains on Prednisone 40mg PO BID. Hemoglobin is 8.9. Patient to receive iron transfusion today. Case discussed with Dr. Poole and MARIA DE JESUS Santamaria. From their standpoint, patient may be discharged home today after iron transfusion. She is to resume her previous dose of prednisone as prescribed by Dr. Poole. Review of Systems GENERAL: Patient denies fever. Denies chills. Positive for generalized weakness. EYES: Denies blurred vision. Denies vision changes. Denies eye pain. EARS, NOSE, MOUTH, & THROAT: Positive for bleeding of oral mucosa. Denies headache. Denies sore throat. Denies ear pain. RESPIRATORY: Denies cough. Denies shortness of breath. Denies sputum production. CARDIOVASCULAR: Denies chest pain or pressure. Denies palpitations. Denies arrhythmias. GASTROINTESTINAL: Denies abdominal pain. Denies diarrhea. Denies constipation. Denies nausea. Denies vomiting. Denies heartburn. Denies blood in the stool. GENITOURINARY: Denies urinary frequency. Denies burning. Denies dysuria. Denies cloudy urine. Denies blood in the urine. MUSCULOSKELETAL: Denies myalgias. Denies joint swelling. Denies decreased range of motion beyond patients baseline. INTEGUMENTARY: Positive for multiple areas of ecchymosis. Denies pruitis. Denies rash. PSYCHIATRIC: Denies suicidal or homicial ideations. ENDOCRINE: Denies weight change. Denies polydipsia. Denies polyuria. HEMATOLOGIC: Known history of ITP. Past Medical History Past Medical History: Blood Disorder, GERD/Reflux, Hyperlipidemia, Hypertension Additional Past Medical History / Comment(s): murmur, arthitis in feet, "blisters in mouth", bruising rt arm (slipped bumped arm but did'nt fall ). ITP History of Any Multi-Drug Resistant Organisms: None Reported Past Surgical History: Hysterectomy Additional Past Surgical History / Comment(s): partial hysterectomy, nehal bunionectomy Past Anesthesia/Blood Transfusion Reactions: No Reported Reaction Past Psychological History: Anxiety Additional Psychological History / Comment(s): pt is indeoendnat. lives with spouse and son. no medical equipment. works in accounting field. Smoking Status: Never smoker Past Alcohol Use History: None Reported Past Drug Use History: None Reported - Past Family History Mother Additional Family Medical History / Comment(s): pacemaker Father Family Medical History: Coronary Artery Disease (CAD) Additional Family Medical History / Comment(s): age 42- cardiac disease Medications and Allergies Home Medications Medication Instructions Recorded Confirmed Type Atorvastatin [Lipitor] 40 mg PO HS 08/17/15 08/31/17 History Lisinopril 10 mg PO DAILY 08/17/15 08/31/17 History Omeprazole [PriLOSEC] 20 mg PO AC-BID #60 cap 08/03/17 08/31/17 Rx ALPRAZolam [Xanax] 0.25 mg PO TID PRN 08/12/17 08/31/17 History predniSONE 40 mg PO BID 08/31/17 08/31/17 History Allergies Allergy/AdvReac Type Severity Reaction Status Date / Time No Known Allergies Allergy Verified 08/31/17 17:28 Physical Exam Vitals: Vital Signs Temp Pulse Pulse Resp BP BP Pulse Ox 09/01/17 08:00 77 18 09/01/17 07:45 98.4 F 77 18 159/91 100 09/01/17 02:04 98.0 F 67 16 120/73 95 09/01/17 00:59 98.3 F 79 16 128/82 98 09/01/17 00:25 98.4 F 61 16 144/81 97 09/01/17 00:15 98.2 F 61 18 133/82 96 09/01/17 00:05 98.1 F 70 16 129/81 96 08/31/17 23:27 97.5 F L 77 17 137/75 98 08/31/17 23:04 98.2 F 70 16 121/75 95 08/31/17 22:34 98.3 F 67 18 139/72 95 08/31/17 22:24 98.0 F 80 16 146/75 98 08/31/17 16:21 98.3 F 72 16 140/88 100 Intake and Output 08/31/17 09/01/17 09/01/17 22:59 06:59 14:59 Intake Total 225 1516 Balance 225 1516 Intake: Intake, IV Titration 225 300 Amount Sodium Chloride 0.9% 1, 225 300 000 ml @ 75 mls/hr IV . [id number] [facility] Rx#:[id number] Blood Product 0 1216 Platelet Pheresis Acda1 0 308 Unit [id number] Platelet Pheresis Acda2 300 Unit [id number] Other: Voiding Method Toilet Toilet Toilet # Voids 3 Weight 64.5 kg GENERAL: This is a 57-year-old female in no apparent distress at the time of examination. Pleasant and cooperative. HEENT: Scattered areas of purpura on tongue. Head is atraumatic, normocephalic. Pupils are equal, round, and reactive to light. Sclerae anicteric. Conjunctivae are clear. Mucus membranes of the mouth are moist. Neck is supple. RESPIRATORY: Clear to ausculation. No wheezes, rales, or rhonchi. No use of accessory muscles. Patient maintaining oxygen saturation greater than 92%. No chest wall tenderness is noted on palpation or with deep breathing. CARDIOVASCULAR: Regular rate and rhythm. S1 and S2 noted. No systolic or diastolic murmur auscultated. No JVD noted. No S3 or S4 noted. GASTROINTESTINAL: No distention noted. Abdomen soft and round. Normal active bowel sounds auscultated x 4 quadrants. No pain or tenderness noted upon palpation. INTEGUMENTARY: Multiple bruises throughout upper and lower extremities. No cyanosis. No jaundice. No rashes noted. No cellulitis noted. EXTREMITIES: 2+ peripheral pulses. No evidence of peripheral edema. No calf tenderness noted. NEUROLOGIC: Cranial nerves II-XII intact. PSYCHIATRIC: Awake, alert, and oriented X 3. Appropriate affect. Intact judgement and insight. Results CBC & Chem 7: 09/01/17 06:51 09/01/17 06:51 Labs: Abnormal Lab Results - Last 24 Hours (Table) 09/01/17 09/01/17 Range/Units 06:51 06:51 RBC 2.95 L (3.80-5.40) m/uL Hgb 8.9 L (11.4-16.0) gm/dL Hct 27.5 L (34.0-46.0) % Plt Count 42 L* D (150-450) k/uL Lymphocytes # 0.7 L (1.0-4.8) k/uL Creatinine 0.46 L (0.52-1.04) mg/dL AST 40 H (14-36) U/L ALT 75 H (9-52) U/L Total Protein 6.1 L (6.3-8.2) g/dL Albumin 3.4 L (3.5-5.0) g/dL Thrombosis Risk Factor Assmnt - Choose All That Apply Each Factor Represents 1 point: Age 41-60 years Thrombosis Risk Factor Assessment Total Risk Factor Score: 1 Thrombosis Risk Factor Assessment Level: Low Risk Assessment and Plan Plan: ASSESSMENT: Thrombocytopenia secondary to ITP, s/p transfusion of 10 units platelets History of idiopathic thrombocytopenic purpura Acute blood loss anemia secondary to severe thrombocytopenia with component of iron deficiency anemia Hypertension Hyperlipidemia PLAN: Patient to receive iron transfusion today. Case discussed with Dr. Poole and MARIA DE JESUS Santamaria. From their standpoint, patient may be discharged home today after iron transfusion. She is to resume her previous dose of prednisone as prescribed by Dr. Poole. The patient was also cleared for discharge per Dr. Mercado. She is to follow up on an outpatient basis. Patient educated on bleeding precautions and verbalized understanding. Nurse practitioner note has been reviewed by physician. Signing provider agrees with the documented findings, assessment, and plan of care.
[2017-09-01 15:19] VITALS: BP 134/73; PULSE 80; TEMP 98.1
--- NOTE | 2017-09-01 17:52 | P.CONS ---
History of Present Illness - Reason for Consult Consult date: 09/01/17 Thrombocytopenia Requesting physician: Roger Mercado - Chief Complaint ITP - History of Present Illness Ms. Mcknight is a very pleasant WF with no PMH other than well controlled HTN and HLP, who presented to her PCP for increasing petechia and lesions on her tongue. CBC showed severe thrombocytopenia. She was told to go to ED, where CBC showed normal WBC and hemoglobin, although plt was 6. Coag's normal. LFT' s normal. She was admitted for further management and were called for further management. No smoking, alcohol, or drugs. Lives at home with her . No known family history of blood disorders or cancers. Kemi was seen in the Hospital for first consultation on 07/28/17. Initially started on solumedrol 1gm/kg/day. After three days of no response to platelet count she was given two doses of IVIG. During this time her steroid dose was increased to 60mg IVP q8 hours. She received 4 doses of platelet transfusions during hospitalization from 07/28/17-08/03/17, because of the known hematoma on right hip, and evidence of petechial rash on bilateral arms. After 5 days of no platelet recovery with high dosed steroids and IVIG infusions a bone marrow biopsy was done. CT scans Chest/Abd/Pelvis completed while inpatient and no signs of concerning adenopathy and no hepato or splenomegaly identified. 08/03/17 - She was discharged home on Prednisone 60mg po qd, a PPI BID, with a platlet count of 19. 08/05/17 - Presents for first follow-up as outpatient and CBC check, platelet count 14 today. Bone marrow was negative, other than mild hypocellularity. As above. The pt's plt count dropped again below 10. Thus PO steroids were increased to 100 mg/d. Repeat IVIg was ordered. Rituxan was started with 1st dose on 08/12/17. She is s/p 3 weekly doses. She presented to the office for CBC and platlets found at 3, she was noted to have increased bruising and mouth sores therefore admitted for platlet transfusion and safety precautions. No active signs of bleeding, mouth sores actually appear to be improving. Review of Systems A 14 point review of systems assessed and completed and all negative except HPI Past Medical History Past Medical History: Blood Disorder, GERD/Reflux, Hyperlipidemia, Hypertension Additional Past Medical History / Comment(s): murmur, arthitis in feet, "blisters in mouth", bruising rt arm (slipped bumped arm but did'nt fall ). ITP History of Any Multi-Drug Resistant Organisms: None Reported Past Surgical History: Hysterectomy Additional Past Surgical History / Comment(s): partial hysterectomy, nehal bunionectomy Past Anesthesia/Blood Transfusion Reactions: No Reported Reaction Past Psychological History: Anxiety Additional Psychological History / Comment(s): pt is indeoendnat. lives with spouse and son. no medical equipment. works in [employer] field. Smoking Status: Never smoker Past Alcohol Use History: None Reported Past Drug Use History: None Reported - Past Family History Mother Additional Family Medical History / Comment(s): pacemaker Father Family Medical History: Coronary Artery Disease (CAD) Additional Family Medical History / Comment(s): age 42- cardiac disease Medications and Allergies Home Medications Medication Instructions Recorded Confirmed Type Atorvastatin [Lipitor] 40 mg PO HS 08/17/15 08/31/17 History Lisinopril 10 mg PO DAILY 08/17/15 08/31/17 History Omeprazole [PriLOSEC] 20 mg PO AC-BID #60 cap 08/03/17 08/31/17 Rx ALPRAZolam [Xanax] 0.25 mg PO TID PRN 08/12/17 08/31/17 History predniSONE 40 mg PO BID 08/31/17 08/31/17 History Allergies Allergy/AdvReac Type Severity Reaction Status Date / Time No Known Allergies Allergy Verified 08/31/17 17:28 Physical Exam Vitals: Vital Signs Temp Pulse Pulse Resp BP BP Pulse Ox 09/01/17 08:00 77 18 09/01/17 07:45 98.4 F 77 18 159/91 100 09/01/17 02:04 98.0 F 67 16 120/73 95 09/01/17 00:59 98.3 F 79 16 128/82 98 09/01/17 00:25 98.4 F 61 16 144/81 97 09/01/17 00:15 98.2 F 61 18 133/82 96 09/01/17 00:05 98.1 F 70 16 129/81 96 08/31/17 23:27 97.5 F L 77 17 137/75 98 08/31/17 23:04 98.2 F 70 16 121/75 95 08/31/17 22:34 98.3 F 67 18 139/72 95 08/31/17 22:24 98.0 F 80 16 146/75 98 08/31/17 16:21 98.3 F 72 16 140/88 100 Intake and Output 08/31/17 09/01/17 09/01/17 22:59 06:59 14:59 Intake Total 225 1516 Balance 225 1516 Intake: Intake, IV Titration 225 300 Amount Sodium Chloride 0.9% 1, 225 300 000 ml @ 75 mls/hr IV . [id number] [facility] Rx#:[id number] Blood Product 0 1216 Platelet Pheresis Acda1 0 308 Unit [id number] Platelet Pheresis Acda2 300 Unit [id number] Other: Voiding Method Toilet Toilet Toilet # Voids 3 Weight 64.5 kg - Constitutional General appearance: average body habitus, cooperative, no acute distress - EENT Eyes: EOMI, PERRLA, dentition normal ENT: NA/AT, other - Neck Neck: normal ROM - Respiratory Respiratory: bilateral: CTA (No increased effort) - Cardiovascular Rhythm: regular Heart sounds: normal: S1, S2 - Gastrointestinal General gastrointestinal: normal bowel sounds, soft - Integumentary Eccymosis in different stages on bilateral arms and legs. Integumentary: pale - Neurologic Neurologic: CNII-XII intact - Musculoskeletal Musculoskeletal: gait normal, generalized weakness, strength equal bilaterally - Psychiatric Psychiatric: A&O x's 3, appropriate affect, intact judgment & insight Results CBC & Chem 7: 09/01/17 06:51 09/01/17 06:51 Labs: Abnormal Lab Results - Last 24 Hours (Table) 09/01/17 09/01/17 Range/Units 06:51 06:51 RBC 2.95 L (3.80-5.40) m/uL Hgb 8.9 L (11.4-16.0) gm/dL Hct 27.5 L (34.0-46.0) % Plt Count 42 L* D (150-450) k/uL Lymphocytes # 0.7 L (1.0-4.8) k/uL Creatinine 0.46 L (0.52-1.04) mg/dL AST 40 H (14-36) U/L ALT 75 H (9-52) U/L Total Protein 6.1 L (6.3-8.2) g/dL Albumin 3.4 L (3.5-5.0) g/dL Assessment and Plan (1) Acute ITP Narrative/Plan: - No active bleeding, continue safety precautions and because she continues to be refractory to the steroids we will continue to wean her at the regular plan of 40mg daily that she was on prior to discharge, continue PPI - Continue with plan for rituxan 4 of 6 tomorrow at [facility] - Continue with monthly IVIG at this time as she has responded each infusion Status: Acute Code(s): D69.3 - IMMUNE THROMBOCYTOPENIC PURPURA SNOMED Code(s ): 97194830 (2) Thrombocytopenia Status: Acute Code(s): D69.6 - THROMBOCYTOPENIA, UNSPECIFIED SNOMED Code(s) : 298659747 Time with Patient: Greater than 30 (Counseling and coordinating care, 50% face to face)
== END 2017-09-01 15:45 | disposition home or self-care (01) | DRG 813 ==
LOC: 5ONC 16:28
PROVIDERS: ADMIT Family Medicine; ATTEND Family Medicine
PROC: 30233R1 Transfusion of Nonautologous Platelets into Peripheral Vein, Percutaneous Approach (ICD-10-PCS; principal; 2017-08-31)
DX: D69.3 Immune thrombocytopenic purpura (principal); D62 Acute posthemorrhagic anemia; E78.5 Hyperlipidemia, unspecified; F41.9 Anxiety disorder, unspecified; I10 Essential (primary) hypertension; K21.9 Gastro-esophageal reflux disease without esophagitis; T14.8XXA Other injury of unspecified body region, initial encounter; R01.1 Cardiac murmur, unspecified; S70.01XA Contusion of right hip, initial encounter; M19.072 Primary osteoarthritis, left ankle and foot; M19.071 Primary osteoarthritis, right ankle and foot; Z90.710 Acquired absence of both cervix and uterus; Z79.899 Other long term (current) drug therapy; Z79.52 Long term (current) use of systemic steroids; Z82.49 Family history of ischemic heart disease and other diseases of the circulatory system; X58.XXXA Exposure to other specified factors, initial encounter
CPT/HCPCS: 80053; 85025

== ENCOUNTER → 2017-10-28 | Day surgery (SDC) | payer BC ==
[2017-10-24 16:03] VITALS: BMI 27.8
[~2017-10-28] MED LIST: LACTATED RINGERS 1,000 ML IV SCH; LIDOCAINE 1% 20 ML VIAL (10MG/ML) FOR IV START INTRADERMA PRN; LIDOCAINE 1% INJ 10MG/ML (20 ML MDV) ONE; PROPOFOL 10 MG/ML 20 ML VIAL IV ONE
[2017-10-28 10:30] VITALS: RESP 16; TEMP 98.6
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
--- NOTE | 2017-10-28 11:16 | P.OP ---
Date of Procedure: 10/28/17 Preoperative Diagnosis: Anemia Postoperative Diagnosis: Antral gastritis Mild diverticulosis Mild internal and external hemorrhoids No evidence of GI bleed Procedure(s) Performed: EGD Colonoscopy Anesthesia: MAC Surgeon: Anibal Mosqueda Pathology: other (Antrum, esophagus) Condition: stable Disposition: PACU Description of Procedure: The patient's placed on the endoscopy table lateral position. She received IV sedation. The gastroscope placed oropharynx passed in the esophagus into the stomach. The scope was then placed through the pylorus. The first and second portion of the duodenum appeared normal. Scope was brought back the antrum and this appeared mildly inflamed. Biopsies performed. The scope was unretroflexed and remainder the stomach appeared normal. The GE junction was at 40 cm. There is no evidence of a hiatal hernia. The distal esophagus was minimal inflamed and a biopsies performed. The proximal esophagus appeared normal. Scope was withdrawn for patient. There is no evidence of upper GI bleed. Next digital rectal exam was performed which revealed a few internal and external hemorrhoids. Flexible colonoscope was then placed patient anus passed throughout the entire colon. The cecum was normal. The right colon and transverse colon appeared normal. In the descending and sigmoid colon a few scattered diverticula. Scope was then brought back the rectum and this appeared normal. There is no evidence of GI bleed in the colon. Scope was withdrawn for patient.
[2017-10-28 11:38] VITALS: BP 145/82; PULSE 61
== END | disposition home or self-care (01) ==
LOC: ORWHC2ENDO 09:47
PROVIDERS: ATTEND Surgery
DX: D64.9 Anemia, unspecified (principal); K29.50 Unspecified chronic gastritis without bleeding; K57.30 Diverticulosis of large intestine without perforation or abscess without bleeding; K21.9 Gastro-esophageal reflux disease without esophagitis; I10 Essential (primary) hypertension; E78.5 Hyperlipidemia, unspecified; M13.872 Other specified arthritis, left ankle and foot; M13.871 Other specified arthritis, right ankle and foot; Z95.0 Presence of cardiac pacemaker; Z79.899 Other long term (current) drug therapy
CPT/HCPCS: 88305; 43239; J2001; J2704; G0121

== ENCOUNTER → 2018-09-30 | Outpatient (CLI) | payer OTHER ==
[2018-09-30 16:50] LABS: LDL Cholesterol,Calculated 84.2 mg/dL (0.0-131.0); VLDL Calculation 12.8 mg/dL (5.00-40.00)
== END | disposition home or self-care (01) ==
LOC: LABWHC1 08:27
PROVIDERS: ATTEND Internal Medicine Interventional Cardiology
DX: E78.2 Mixed hyperlipidemia (principal)
CPT/HCPCS: 36415; 80061; 84450; 84460

== ENCOUNTER → 2021-08-27 | Outpatient (CLI) | payer BC ==
--- NOTE | 2021-08-27 19:50 | CA ---
Transthoracic Echo Report Name: Kemi Mcknight Age: 61 Gender: F : 1960 Exam Date: 08/27/2021 13:53 Exam Location: [place] [facility] Ht (in): 62 Wt (lb): 165 Ordering Physician: Roger Mercado DO Attending/Referring Phys: Contact Center Rep Trina Victoria RDCS Procedure CPT: Indications: I10 HYPERTENSION Cardiac Hx: Technical Quality: Good Contrast 1: Total Dose (mL): Contrast 2: Total Dose (mL): MEASUREMENTS (Male / Female) Normal Values 2D ECHO LV Diastolic Diameter PLAX 4.0 cm 4.2 - 5.9 / 3.9 - 5.3 cm LV Systolic Diameter PLAX 2.6 cm IVS Diastolic Thickness 1.2 cm 0.6 - 1.0 / 0.6 - 0.9 cm LVPW Diastolic Thickness 1.1 cm 0.6 - 1.0 / 0.6 - 0.9 cm LV Relative Wall Thickness 0.6 RV Internal Dim ED PLAX 2.9 cm LA Systolic Diameter LX 3.6 cm 3.0 - 4.0 / 2.7 - 3.8 cm M-MODE Aortic Root Diameter MM 2.9 cm MV E Point Septal Separation 0.3 cm AV Cusp Separation MM 1.8 cm DOPPLER AV Peak Velocity 130.3 cm/s AV Peak Gradient 6.8 mmHg MV Area PHT 3.2 cm??? Mitral E Point Velocity 77.2 cm/s Mitral A Point Velocity 87.4 cm/s Mitral E to A Ratio 0.9 MV Deceleration Time 238.6 ms MV E' Velocity 5.8 cm/s Mitral E to MV E' Ratio 13.2 TR Peak Velocity 201.7 cm/s TR Peak Gradient 16.3 mmHg Right Ventricular Systolic Press 21.3 mmHg FINDINGS Left Ventricle Left ventricular ejection fraction is estimated at 60-65 %. Left ventricular cavity size normal. Borderline left ventricular hypertrophy. Right Ventricle Normal right ventricular size and function. Right ventricular systolic pressure within normal limits. Right Atrium Normal right atrial size. Left Atrium Normal left atrial size. No evidence for an atrial septal defect. Interatrial septal aneurysm. Mitral Valve Trace mitral regurgitation. Aortic Valve Trileaflet aortic valve. No aortic valve stenosis or regurgitation. Trace to mild aortic regurgitation. Tricuspid Valve Trace to mild tricuspid regurgitation. Pulmonic Valve Mild pulmonic regurgitation. Pericardium Normal pericardium. Aorta Normal size aortic root and proximal ascending aorta. CONCLUSIONS Normal LV size and systolic function with mild septal hypertrophy Previewed by: Dr. Landon Salas MD (Electronically Signed) Final Date: 27 Aug 2021 19:49
== END | disposition home or self-care (01) ==
LOC: RADECHMAIN 13:41
PROVIDERS: ATTEND Family Medicine
DX: I11.9 Hypertensive heart disease without heart failure (principal); I08.8 Other rheumatic multiple valve diseases
CPT/HCPCS: 93306

== ENCOUNTER → 2023-03-23 | Outpatient (CLI) | payer BC ==
--- NOTE | 2023-03-24 10:41 | MM ---
Reason for Exam: Screening (asymptomatic). Last mammogram was performed 5 year(s) and 8 month(s) ago. Patient History: Menarche at age 11. First Full-Term at age 23. Hysterectomy at age 51. Postmenopausal. Maternal aunt had breast cancer at or over age 50. Risk Values: Cris 5 year model risk: 1.4%. NCI Lifetime model risk: 6.0%. Prior Study Comparison: 08/12/2011 Bilateral Screening Mammogram, [facility]. 07/05/2013 Bilateral Diagnostic Mammogram, [facility]. 07/22/2017 Bilateral Screening Mammogram, [facility]. Tissue Density: There are scattered fibroglandular densities. Findings: Analyzed By CAD. There is no suspicious group of microcalcifications or new suspicious mass in either breast. Overall Assessment: Negative, BI-RAD 1 Management: Screening Mammogram of both breasts in 1 year. . Patient should continue monthly self-breast exams. A clinical breast exam by your physician is recommended on an annual basis. This exam should not preclude additional follow-up of suspicious palpable abnormalities. Note on Cris scores and lifetime risk: 1. A Cris score greater than 3% is considered moderate risk. If this is the case, consider specialist referral to assess eligibility for a risk reducing agent. 2. If overall lifetime risk for the development of breast cancer is 20% or higher, the patient may qualify for future screening with alternating mammogram and breast MRI. Electronically signed and approved by: Jam Carballo M.D. Radiologis
== END | disposition home or self-care (01) ==
LOC: RADMAMWWP 07:18
PROVIDERS: ATTEND Family Medicine
DX: Z12.31 Encounter for screening mammogram for malignant neoplasm of breast (principal); Z78.0 Asymptomatic menopausal state; Z80.3 Family history of malignant neoplasm of breast
CPT/HCPCS: 77063; 77067

== ENCOUNTER → 2023-09-03 | Outpatient (CLI) | payer BC ==
[2023-09-03 13:11] LABS: Basophils # (A) 0.04 X 10*3/uL (0.00-0.10); Basophils % (A) 0.9 %; Eosinophils % (A) 2.2 %; HCT 36.5 % (37.2-46.3); HGB 12.1 g/dL (12.0-15.0); Immature Grans, Automated 0 %; Lymphocytes % (A) 30.4 %; MCH 31.3 pg (27.0-32.0); MCHC 33.2 g/dL (32.0-37.0); MCV 94.3 FL (80.0-97.0); Mean Platelet Volume 12.7 FL (9.5-12.2); Monocytes % (A) 8.7 %; NRBC Per 100 WBC 0 X 10*3/uL (0.00-0.01); Neutrophils # (A) 2.67 X 10*3/uL (1.80-7.70); Neutrophils % (A) 57.8 %; Platelet Count 157 X 10*3/uL (140-440); RBC 3.87 X 10*6/uL (4.10-5.20); RDW 13.3 % (11.5-14.5); WBC 4.61 X 10*3/uL (4.50-10.00)
[2023-09-03 13:27] LABS: ALT 25 U/L (8-44); AST 22 U/L (13-35); Albumin 4.4 g/dL (3.8-4.9); Albumin/Globulin Ratio 1.83 Ratio (1.60-3.17); Alkaline Phosphatase 95 U/L (41-126); BUN/Creat Ratio 22.17 Ratio (12.00-20.00); Blood Urea Nitrogen 13.3 mg/dL (9.0-27.0); Calcium 9.6 mg/dL (8.7-10.3); Carbon Dioxide 26.3 mmol/L (21.6-31.8); Chloride 106 mmol/L (96-109); Globulin 2.4 g/dL (1.6-3.3); Glucose 97 mg/dL (70-110); LDL Cholesterol,Calculated 84.5 mg/dL (0.0-131.0); Sodium 143 mmol/L (135-145); Total Bilirubin 0.4 mg/dL (0.3-1.2); Total Protein 6.8 g/dL (6.2-8.2); VLDL Calculation 10.32 mg/dL (5.00-40.00)
== END | disposition home or self-care (01) ==
LOC: LABWHC1 08:23
PROVIDERS: ATTEND Family Medicine
DX: I10 Essential (primary) hypertension (principal); E78.5 Hyperlipidemia, unspecified; R73.9 Hyperglycemia, unspecified
CPT/HCPCS: 36415; 80053; 80061; 83036; 85025

== ENCOUNTER → 2024-04-23 | Outpatient (CLI) | payer BC ==
--- NOTE | 2024-04-26 18:25 | MM ---
Reason for Exam: Screening (asymptomatic). Last mammogram was performed 1 year(s) and 1 month(s) ago. Patient History: Menarche at age 11. First Full-Term at age 23. Hysterectomy at age 51. Postmenopausal. Maternal aunt had breast cancer at or over age 50. Risk Values: Cris 5 year model risk: 1.4%. NCI Lifetime model risk: 5.8%. Prior Study Comparison: 07/05/2013 Bilateral Diagnostic Mammogram, [facility]. 07/22/2017 Bilateral Screening Mammogram, [facility]. 03/23/2023 Bilateral MG 3D screening mammo w/cad, [facility]. Tissue Density: There are scattered areas of fibroglandular density. Findings: Analyzed By CAD. The pattern is symmetrical. No significant interval change No suspicious groups of microcalcifications, spiculated or lobular masses, architectural distortion or other secondary signs of malignancy are mammographically apparent. Overall Assessment: Benign, BI-RAD 2 Management: Screening Mammogram of both breasts in 1 year. A negative mammogram report should not preclude additional follow up of suspicious palpable abnormalities. Patient should continue monthly self breast exam. A clinical breast exam by your physician is recommended on an annual basis and results should be correlated with mammographic findings. Note on Cris scores and lifetime risk: 1. A Cris score greater than 3% is considered moderate risk. If this is the case, consider specialist referral to assess eligibility for a risk reducing agent. 2. If overall lifetime risk for the development of breast cancer is 20% or higher, the patient may qualify for future screening with alternating mammogram and breast MRI. [facility], , 04/26/2024 6:22 PM. Electronically signed and approved by: Tito Lora D.O. Radiologis
== END | disposition home or self-care (01) ==
LOC: RADMAMWWP 08:42
PROVIDERS: ATTEND Family Medicine
DX: Z12.31 Encounter for screening mammogram for malignant neoplasm of breast (principal); Z80.3 Family history of malignant neoplasm of breast; Z78.0 Asymptomatic menopausal state; R92.323 Mammographic fibroglandular density, bilateral breasts
CPT/HCPCS: 77063; 77067